=== PATIENT | male | born 1950 | race Hispanic/Latino ===

== ENCOUNTER → 2018-10-25 | Outpatient (CLI) | payer OTHER ==
[~2018-10-25] MED LIST: CILO100T PO; GLIM4TAB3 PO; METF-446 PO; MIRA25TA PO; TAMS0.4C32 PO
== END | disposition home or self-care (01) ==
LOC: OIH 16:18
PROVIDERS: ATTEND Family Medicine
DX: J44.9 Chronic obstructive pulmonary disease, unspecified (principal); I47.1 Supraventricular tachycardia
CPT/HCPCS: 71046

== ENCOUNTER 2020-01-26 13:43 | Inpatient (IN) | payer OTHER ==
[~2020-01-26] VITALS: Ht 170.2 cm; Wt 64.0 kg
[~2020-01-26 13:43] MED LIST changes: +ATOR10TA69 PO; -GLIM4TAB3 PO; +GLIM4TAB36 PO; +GLIP5TAB11 PO; -MIRA25TA PO; +SIMV-43 PO
[2020-01-26 14:05] LABS: BASOPHILS % (AUTO) 0.3 % (0.0-5.0); EOSINOPHILS % (AUTO) 0.4 % (0.0-8.0); HEMATOCRIT 36.4 % (42-54); LYMPHOCYTES % (AUTO) 2.7 % (21.0-51.0); MEAN CORPUSCULAR HEMOGLOBIN 27.9 pg (27.0-33.0); MEAN CORPUSCULAR HGB CONC 32.4 g/dL (32.0-36.0); MEAN CORPUSCULAR VOLUME 86.1 fL (79-99); MONOCYTES % (AUTO) 8.1 % (3.0-13.0); PLATELET COUNT (AUTO) 188 K/uL (130-400); RED BLOOD CELL COUNT(AUTO) 4.23 MIL/uL (4.50-6.20); RED CELL DISTRIBUTION WIDTH 14.6 % (11.0-15.5); WHITE BLOOD COUNT (AUTO) 24.1 K/uL (4.8-10.8)
[2020-01-26 14:22] LABS: INR 1.15 (0.85-1.15); PARTIAL THROMBOPLASTIN TIME 34.1 SEC (26.3-35.5); PROTHROMBIN TIME 12.4 SEC (9.6-11.6)
[2020-01-26] MEDS ORDERED: SODIUM CHLORIDE 0.9% 1000ML 1,000 ML IV ONE ×3 (14:22→19:53)
[2020-01-26 14:37] LABS: POTASSIUM 3.3 mmol/L (3.5-5.1)
[2020-01-26] MEDS ORDERED: LEVOFLOXACIN 500 MG/D5W 100 ML 100 ML ONE (14:42)
[2020-01-26] MEDS ORDERED: CEFTRIAXONE SODIUM 1 GM ONE (14:42)
[2020-01-26 14:50] LABS: ALBUMIN 2.9 g/dL (3.5-5.0); BILIRUBIN,TOTAL 0.8 mg/dL (0.2-1.0); TOTAL PROTEIN, SERUM 7.3 g/dL (6.0-8.3)
[2020-01-26 14:59] LABS: APPEARANCE,URINE Cloudy (CLEAR); BILIRUBIN,URINE Negative (NEGATIVE); COLOR,URINE Dark Yellow (YELLOW); GLUCOSE, URINE (UA) >=1000 mg/dL (NEGATIVE); KETONES,URINE 15 mg/dL (NEGATIVE); LEUKOCYTE ESTERASE ,URINE Trace (NEGATIVE); NITRATE,URINE Negative (NEGATIVE); OCCULT BLOOD,URINE Large (NEGATIVE); PROTEIN,URINE 300 mg/dL (NEGATIVE)
[2020-01-26 15:18] LABS: BACTERIA,URINE Moderate /HPF (None Seen); MUCUS,URINE Few LPF (None Seen); SQUAMOUS EPITHELIAL CELL,UR Few /HPF (0-2)
[2020-01-26] MEDS ORDERED: POTASSIUM BICARB/CIT AC 25 MEQ TABLET.EFF ONE (15:24)
[2020-01-26] MEDS ORDERED: METRONIDAZOLE 500MG/100ML BAG 100 ML ONE (15:25)
[2020-01-26] MEDS ORDERED: ACETAMINOPHEN 325 MG TAB ONE ×2 (16:22→21:36)
[2020-01-26] MEDS ORDERED: ACETAMINOPHEN 325 MG TAB PO PRN ×2 (17:15→18:15)
[2020-01-26] MEDS: SODIUM CHLORIDE 0.9% 1000ML 1,000 ML IV SCH (18:15)
[2020-01-26] MEDS ORDERED: LACTULOSE 20 GM/30 ML UDCUP PO PRN (18:15)
[2020-01-26] MEDS ORDERED: NITROGLYCERIN 0.4 MG SL TAB SL PRN (18:15)
[2020-01-26] MEDS: METRONIDAZOLE 500MG/100ML BAG 100 ML IV SCH (18:15)
[2020-01-26] MEDS ORDERED: ONDANSETRON HCL 4 MG/2 ML VIAL IV PRN (18:15)
[2020-01-26] MEDS ORDERED: CEFTRIAXONE SODIUM 1 GM IV SCH (18:15)
[2020-01-26] MEDS ORDERED: HYDRALAZINE HCL 20 MG/ML VIAL ONE (20:21)
[2020-01-26] MEDS: INSULIN HUMULIN R 100 UNIT/ML 3ML SQ SCH (21:00)
[2020-01-26 21:50] VITALS: BP 131/72
[2020-01-26] MEDS ORDERED: FOLI1 PO (22:47)
[2020-01-26] MEDS ORDERED: METF-446 PO (22:47)
[2020-01-26] MEDS ORDERED: FERR-82 PO (22:47)
[2020-01-26] MEDS ORDERED: AMOX1TAB16 PO (22:47)
[2020-01-26] MEDS ORDERED: GLIP5TAB11 PO (22:47)
[2020-01-26] MEDS ORDERED: OMEP40CA13 PO (22:47)
[2020-01-26] MEDS ORDERED: CILO100T PO (22:47)
[2020-01-26] MEDS ORDERED: NITR100C PO (22:47)
[2020-01-26] MEDS ORDERED: SIMV-43 PO (22:47)
[2020-01-26] MEDS ORDERED: TAMS-1 PO (22:47)
--- NOTE | 2020-01-26 23:22 | NUR ---
PATIENT RECEIVED TO ROOM 326 FROM Maura, REPORT FROM GALINDO RN. PT ARRIVED TO ROOM WIT FEVER OF 103.7, PER GALINDO SHE STATES SHE GAVE HIM TYLENOL BEFORE TRANSPORTING TO ROOM. ICE PACKS IMMEDIATELY PLACED ON PATIENT. STARTED 20 G PIV TO RIGHT FA. NS AT 100ML TO LEFT AC PIV. TELE MONITORING WITH ST 120s. PATIENT IS VERY IONE, ALERT ONLY TO SELF, , AND IS AWARE HE IS IN THE HOSPITAL EXCEPT HE SAID [facility] [place]. I REORIENTED TO PLACE, INSTRUCTED [employer] USE. ASSESSMENT COMPLETED. I CALLED HIS , HERMAN FERRERA AND OBTAINED ADMIT INFORMATION FROM HER. I INSTRUCTED ON NO VISITORS UNTIL FURTHER NOTICE. STATES SHE IS AWARE AND WILL CALL TOMORROW TO F/U ON HER . RECHECK OF TEMP IS 100.6 (ORAL). WILL CONT TO MONITOR CLOSELY.
[2020-01-26 23:32] VITALS: BP 131/72
[2020-01-27] VITALS (11 sets, daily range): BP systolic 97–157; BP diastolic 60–99
--- NOTE | 2020-01-27 01:27 | NUR ---
PATIENT NOTED TO BE SHIVERING, TEMP ASSESSED, FOUND TO BE 103.1. ICE PACKS CONT ON PATIENT, TYLENOL 650 MG PO ADMINISTERED. WILL CONT TO MONITOR CLOSELY.
[2020-01-27] MEDS: METRONIDAZOLE 500MG/100ML BAG 100 ML IV SCH ×2 (02:01→09:41)
--- NOTE | 2020-01-27 02:22 | NUR ---
TEMP AT 102.2 ORAL. PATIENT CONT WITH ICE PACKS TO BODY. NO ACUTE DISTRESS NOTED. WILL CONT TO MONITOR CLOSELY.
--- NOTE | 2020-01-27 03:10 | NUR ---
TEMP AT 99.9 ORAL. PATIENT WAS SLEEPING, NO ACUTE DISTRESS NOTED. WILL CONT TO MONITOR CLOSELY.
[2020-01-27] MEDS: SODIUM CHLORIDE 0.9% 1000ML 1,000 ML IV SCH ×3 (04:34→18:16)
[2020-01-27] MEDS ORDERED: VANCOMYCIN PROTOCOL PER PHARMACY IV SCH (04:45)
[2020-01-27] MEDS: ACETAMINOPHEN 325 MG TAB PO PRN ×2 (04:45→14:32)
[2020-01-27] MEDS ORDERED: IPRATROPIUM/ALBUTEROL SULFATE 3 ML SOLUTION IH PRN (04:45)
[2020-01-27] MEDS ORDERED: CEFEPIME HCL 2 GM VIAL IVP SCH (05:00)
[2020-01-27 05:15] LABS: BASOPHILS % (AUTO) 0.2 % (0.0-5.0); EOSINOPHILS % (AUTO) 0.9 % (0.0-8.0); HEMATOCRIT 32.9 % (42-54); LYMPHOCYTES % (AUTO) 4.2 % (21.0-51.0); MEAN CORPUSCULAR HGB CONC 31.6 g/dL (32.0-36.0); MEAN CORPUSCULAR VOLUME 85.5 fL (79-99); MONOCYTES % (AUTO) 5.5 % (3.0-13.0); NEUTROPHILS % (AUTO) 87.9 % (40.0-77.0); PLATELET COUNT (AUTO) 156 K/uL (130-400); RED BLOOD CELL COUNT(AUTO) 3.85 MIL/uL (4.50-6.20); RED CELL DISTRIBUTION WIDTH 14.6 % (11.0-15.5); WHITE BLOOD COUNT (AUTO) 18.8 K/uL (4.8-10.8)
[2020-01-27 05:23] LABS: HEMOGLOBIN A1C 7.9 % (4.0-6.0)
--- NOTE | 2020-01-27 05:25 | NUR ---
RECEIVED CALL FROM TELEMETRY AT 0400, PATIENT WITH HEART RATE 140-150s. PT WAS FOUND SEVERELY SHIVERING, TEMP WAS AT 103.2. I PAGED RIMA RUIZ. HE CAME TO ASSESS PATIENT. I INFORMED HIM THAT PATIENT WAS SENT UP FROM ER WITH TEMP OF 103. I INFORMED HIM THAT I HAVE KEPT HIM ON ICE PACKS SINCE HE WAS BROUGHT FROM [facility]. T-MAX HAS BEEN 103 TO 99.9 AND IMMEDIATELY GOES UP TO 103 AGAIN. STAT ORDERS RECEIVED AND CARRIED OUT. PATIENT TRANSFERRED TO ROOM 222 FOR DX SEPSIS AND FEVER. REPORT GIVEN TO ELMA MARTINEZ.
[2020-01-27 05:35] LABS: ALBUMIN 2.5 g/dL (3.5-5.0); BILIRUBIN,TOTAL 0.7 mg/dL (0.2-1.0); CREATININE 1.5 mg/dL (0.5-1.5); TOTAL PROTEIN, SERUM 6.7 g/dL (6.0-8.3)
--- NOTE | 2020-01-27 05:35 | NUR ---
Patient transferred from 3rd floor. Upon arrival; Fever 103.5, tachycardia 130s, BP 149/99. Patient on 2L nc, 02 sats at 97%. No signs of respiratory distress. Drowsy and RAMPART. Tolerating IV antibiotics.
[2020-01-27] MEDS ORDERED: POTASSIUM CHLORIDE 20 MEQ/100 ML BAG IV SCH ×2 (05:45→09:00)
[2020-01-27 05:53] LABS: CRP QUANTITATIVE 465.8 mg/L (0.00-9.0)
[2020-01-27] MEDS ORDERED: DOXYCYCLINE 100MG+NS 250ML 250 ML IV SCH ×2 (06:00→08:00)
--- NOTE | 2020-01-27 06:00 | NUR ---
RIMA Campo informed of lactic 2.5, K+ of 3.0, fever of 103.5. Orders given for potassium replacement of 40 meq.
[2020-01-27] MEDS: INSULIN HUMULIN R 100 UNIT/ML 3ML SQ SCH ×4 (06:35→20:36)
[2020-01-27] MEDS ORDERED: VANCOMYCIN 1GM+NS 250ML 250 ML IV SCH (07:00)
[2020-01-27] MEDS: FAMOTIDINE/PF 20 MG/2 ML VIAL IV SCH (08:08)
[2020-01-27] MEDS ORDERED: SODIUM CHLORIDE 0.9% 1000ML 1,000 ML IV SCH (08:43)
[2020-01-27] MEDS ORDERED: LEVOFLOXACIN 250 MG/D5W 50ML 50 ML IV SCH (09:00)
[2020-01-27] MEDS ORDERED: ENOXAPARIN SODIUM 30 MG/0.3 ML SQ SCH (09:00)
[2020-01-27] MEDS ORDERED: LINEZOLID 600 MG/ISO-OSM 300 ML IV SCH (10:00)
[2020-01-27] MEDS ORDERED: PHARMACY COMMUNICATION MISC SCH (11:00)
[2020-01-27] MEDS ORDERED: COMPOUND PO MISCELLANEOUS 1 EACH MISC MISC PRN (11:15)
[2020-01-27] MEDS: VANCOMYCIN 250MG/5ML ORAL SOLUTION 40ML PO SCH ×4 (13:57→18:16)
[2020-01-27] MEDS: OSELTAMIVIR PHOSPHATE 75 MG CAP PO SCH (14:31)
--- NOTE | 2020-01-27 15:45 | NUR ---
Patient with continued fever. Cooling blanket placed on patient.
--- NOTE | 2020-01-27 17:15 | NUR ---
Dr. Byrd notified of patient with tachypnea and SVT 171. Lopressor [address] Moya with call. Ordered Meropenem 1 gm iv Q8 hours.
[2020-01-27] MEDS ORDERED: MEROPENEM 1 GM VIAL ONE (17:22)
[2020-01-27] MEDS ORDERED: METOPROLOL TARTRATE 1 MG/ML 5ML VIAL IV ONE (17:22)
[2020-01-27] MEDS ORDERED: METOPROLOL TARTRATE 1 MG/ML 5ML VIAL IV PRN (17:30)
[2020-01-27] MEDS: MEROPENEM 1 GM VIAL IVP SCH (17:36)
--- NOTE | 2020-01-27 17:45 | NUR ---
Dr. Byrd notified of patient with continued tachypnea and decreased oxygen saturation. Ordered abg and cxr. Transfer to ICU.
[2020-01-27 17:56] LABS: ABG BASE EXCESS -5.8 mmol/L (-2.0-3.0); ABG HCO3 17.5 mmol/L (21.0-28.0); ABG OXYGEN SATURATION 84.7 % (95.0-99.0); ABG PCO2 29 mmHg (35-48)
--- NOTE | 2020-01-27 18:03 | NUR ---
Dr. Bliss notified of ICU orders and abg results. No new orders received. Patient with oxygen saturation of 100 % with non rebreather.
[2020-01-28] VITALS (62 sets, daily range): BP systolic 94–151; BP diastolic 38–107
[2020-01-28] MEDS: VANCOMYCIN 250MG/5ML ORAL SOLUTION 40ML PO SCH ×8 (00:27→19:37)
[2020-01-28] MEDS: MEROPENEM 1 GM VIAL IVP SCH ×3 (01:09→16:46)
[2020-01-28] MEDS: ACETAMINOPHEN 325 MG TAB PO PRN ×3 (01:47→16:14)
--- NOTE | 2020-01-28 02:40 | NUR ---
Patient with continues to have high fevers (Rectal) . Continuous Cooling blanket placed on patient underneath sheets. Hospitalist contacted for orders.. Patient continues to be monitor
[2020-01-28] MEDS ORDERED: FUROSEMIDE 10 MG/ML 4ML VIAL ONE (02:59)
[2020-01-28] MEDS ORDERED: FUROSEMIDE 10 MG/ML 4ML VIAL IV SCH (03:00)
[2020-01-28 03:04] LABS: ABG BASE EXCESS -12.3 mmol/L (-2.0-3.0); ABG OXYGEN SATURATION 94.9 % (95.0-99.0); ABG PCO2 29 mmHg (35-48)
--- NOTE | 2020-01-28 03:34 | NUR ---
Contacted DR Bliss regarding ABG's changes and patient upgraded to ICU. Only order requested is to have Lactic Acid draw at 7am.
--- NOTE | 2020-01-28 03:45 | NUR ---
Report given to [facility] ICU nurse. Patient transfer via wheel chair and monitor to room 210. Patient stable, good, no distress during transfer.
[2020-01-28 04:13] LABS: BASOPHILS % (AUTO) 0.3 % (0.0-5.0); EOSINOPHILS % (AUTO) 0.6 % (0.0-8.0); LYMPHOCYTES % (AUTO) 3.2 % (21.0-51.0); MEAN CORPUSCULAR HEMOGLOBIN 27.9 pg (27.0-33.0); MEAN CORPUSCULAR HGB CONC 31.4 g/dL (32.0-36.0); MEAN CORPUSCULAR VOLUME 88.9 fL (79-99); MONOCYTES % (AUTO) 5.5 % (3.0-13.0); NEUTROPHILS % (AUTO) 89.4 % (40.0-77.0); PLATELET COUNT (AUTO) 185 K/uL (130-400); RED BLOOD CELL COUNT(AUTO) 4.05 MIL/uL (4.50-6.20); RED CELL DISTRIBUTION WIDTH 14.8 % (11.0-15.5); WHITE BLOOD COUNT (AUTO) 18.6 K/uL (4.8-10.8)
[2020-01-28 04:36] LABS: ALBUMIN 2.3 g/dL (3.5-5.0); BILIRUBIN,TOTAL 0.6 mg/dL (0.2-1.0); CREATININE 1.8 mg/dL (0.5-1.5); MAGNESIUM 1.9 mg/dL (1.80-2.40); PHOSPHORUS 3.2 mg/dL (2.5-4.9); POTASSIUM 4.3 mmol/L (3.5-5.1); TOTAL PROTEIN, SERUM 6.8 g/dL (6.0-8.3)
--- NOTE | 2020-01-28 04:36 | NUR ---
[facility]0 [facility]. On Bipap 08/13, BR-16, FI02-50%. On cooling blanket w/rectal probe. Temp 101.8 rectal. Labs reported to Dr Bliss. RIMA VOLUNTEER PATIENT REPRESENTATIVE here with patient. Ordered f/c. 0345 16 fr tyler inserted using strict,,sterile technique. 0400 labs drawn. 0415 lactic acid level 2.7.
[2020-01-28] MEDS: IPRATROPIUM/ALBUTEROL SULFATE 3 ML SOLUTION IH SCH ×4 (06:29→23:39)
[2020-01-28] MEDS ORDERED: VANCOMYCIN 1GM+NS 250ML 250 ML IV SCH (07:00)
[2020-01-28] MEDS: INSULIN HUMULIN R 100 UNIT/ML 3ML SQ SCH ×4 (07:57→20:55)
[2020-01-28] MEDS: FAMOTIDINE/PF 20 MG/2 ML VIAL IV SCH (08:02)
[2020-01-28] MEDS: DOXYCYCLINE 100MG+NS 250ML 250 ML IV SCH ×2 (12:22→21:12)
[2020-01-28 13:49] LABS: LACTATE DEHYDROGENASE 534 U/L (81-234)
[2020-01-28 13:54] LABS: CREATINE KINASE, TOTAL 551 U/L (21-232)
[2020-01-28] MEDS: OSELTAMIVIR PHOSPHATE 75 MG CAP PO SCH (14:07)
--- NOTE | 2020-01-28 16:30 | NUR ---
DR SHAW AT BEDSIDE TO ASSESS PATIENT
--- NOTE | 2020-01-28 16:36 | NUR ---
INITIAL: Pt currently in isolation. Call placed to spouse Kassandra. Per Kassandra, prior to admission pt was walking short distances independently, however has had several falls recently to the point she had to call EMS. Pt has no DME or services prior to admission. Per pt's spouse, pt had been to [facility] back on 09/2019 for rehab and would consider a short stay if he is too weak to go home. Discussed w spouse that CM would continue to follow pt's progress and assist w dc needs. Informed her that if Md orders SNF referral would have to poss wait on ins auth. Mrs Rojas verbalizes understanding. Addendum: 01/28/20 at 1640 by OZZY KUMARI Amended: Links added.
[2020-01-28] MEDS ORDERED: FUROSEMIDE 10 MG/ML 2ML VIAL IV SCH ×2 (18:00→22:00)
[2020-01-28] MEDS: MIDODRINE HCL 5 MG TABLET PO SCH (21:11)
[2020-01-29] VITALS (34 sets, daily range): BP systolic 67–131; BP diastolic 43–87
[2020-01-29] MEDS: VANCOMYCIN 250MG/5ML ORAL SOLUTION 40ML PO SCH ×10 (01:22→23:32)
[2020-01-29] MEDS: MEROPENEM 1 GM VIAL IVP SCH ×4 (01:36→23:30)
[2020-01-29] MEDS: ACETAMINOPHEN 325 MG TAB PO PRN (03:25)
[2020-01-29 04:33] LABS: BASOPHILS % (AUTO) 0.6 % (0.0-5.0); EOSINOPHILS % (AUTO) 0.3 % (0.0-8.0); HEMATOCRIT 37.4 % (42-54); LYMPHOCYTES % (AUTO) 3.3 % (21.0-51.0); MEAN CORPUSCULAR HEMOGLOBIN 27.1 pg (27.0-33.0); MEAN CORPUSCULAR HGB CONC 31.8 g/dL (32.0-36.0); MEAN CORPUSCULAR VOLUME 85.2 fL (79-99); MONOCYTES % (AUTO) 8.1 % (3.0-13.0); NEUTROPHILS % (AUTO) 86.1 % (40.0-77.0); PLATELET COUNT (AUTO) 211 K/uL (130-400); RED BLOOD CELL COUNT(AUTO) 4.39 MIL/uL (4.50-6.20); RED CELL DISTRIBUTION WIDTH 14.8 % (11.0-15.5); WHITE BLOOD COUNT (AUTO) 21.5 K/uL (4.8-10.8)
[2020-01-29 05:02] LABS: ALBUMIN 2.2 g/dL (3.5-5.0); BILIRUBIN,TOTAL 0.5 mg/dL (0.2-1.0); CREATININE 1.5 mg/dL (0.5-1.5); MAGNESIUM 1.4 mg/dL (1.80-2.40); PHOSPHORUS 2.4 mg/dL (2.5-4.9); POTASSIUM 3.1 mmol/L (3.5-5.1); TOTAL PROTEIN, SERUM 6.8 g/dL (6.0-8.3)
[2020-01-29 05:30] LABS: B-TYPE NATRIURETIC PEPTIDE 2630 pg/mL (0-100)
[2020-01-29] MEDS ORDERED: LIDOCAINE HCL-MPF 1% 2ML VIAL IV PRN (06:30)
[2020-01-29] MEDS ORDERED: PHARMACY COMMUNICATION MISC SCH (06:30)
[2020-01-29] MEDS: IPRATROPIUM/ALBUTEROL SULFATE 3 ML SOLUTION IH SCH (06:31)
[2020-01-29] MEDS: INSULIN HUMULIN R 100 UNIT/ML 3ML SQ SCH ×5 (07:30→21:07)
[2020-01-29] MEDS: MAGNESIUM 2GM PREMIX 50ML 50 ML IV PRN (08:18)
[2020-01-29] MEDS: FAMOTIDINE/PF 20 MG/2 ML VIAL IV SCH (08:19)
[2020-01-29] MEDS: MIDODRINE HCL 5 MG TABLET PO SCH ×2 (08:19→21:05)
[2020-01-29] MEDS: POTASSIUM CHLORIDE 20 MEQ ERTAB PO PRN ×3 (08:19→21:06)
--- NOTE | 2020-01-29 10:44 | NUR ---
TRANSFER FOR POSSIBLE COVID ORDER FOR PATIENT TO TRANSFER TO 215 FOR SUSPECTED COVID.
--- NOTE | 2020-01-29 11:00 | NUR ---
DR. SHAW AT BEDSIDE DR. SHAW FOR PATIENT ROUNDING. HE WAS UPDATED ABOUT PATIENTS TEMPS AND POTASSIUM LEVEL. NO ORDERS GIVEN.
--- NOTE | 2020-01-29 11:25 | NUR ---
REPORT GIVEN TO MELODY Ramon RN AT 1125. PATIENT TAKEN TO ROOM 215 ON NASAL CANNULA. PATIENT STABLE AND ALERT.
--- NOTE | 2020-01-29 12:25 | NUR ---
Assumed care of patient. MICHELLE Costello gave report. No changes found to documented noon assessment. Will continue to monitor.
[2020-01-29] MEDS: OSELTAMIVIR PHOSPHATE 75 MG CAP PO SCH (13:20)
[2020-01-29] MEDS: FUROSEMIDE 10 MG/ML 4ML VIAL IV SCH ×2 (13:23→23:31)
[2020-01-29] MEDS: DOXYCYCLINE 100MG+NS 250ML 250 ML IV SCH ×2 (13:25→23:31)
[2020-01-29 18:56] LABS: MAGNESIUM 1.4 mg/dL (1.80-2.40); POTASSIUM 3.1 mmol/L (3.5-5.1)
[2020-01-30] VITALS (26 sets, daily range): BP systolic 97–148; BP diastolic 49–92
[2020-01-30 04:39] LABS: HEMATOCRIT 38.6 % (42-54); MEAN CORPUSCULAR HEMOGLOBIN 27.5 pg (27.0-33.0); MEAN CORPUSCULAR HGB CONC 33.2 g/dL (32.0-36.0); NUCLEATED RED BLOOD CELLS 0.2 % (0.0-0.19); PLATELET COUNT (AUTO) 228 K/uL (130-400); RED BLOOD CELL COUNT(AUTO) 4.65 MIL/uL (4.50-6.20); RED CELL DISTRIBUTION WIDTH 14.5 % (11.0-15.5); WHITE BLOOD COUNT (AUTO) 19.3 K/uL (4.8-10.8)
[2020-01-30 05:27] LABS: ALBUMIN 2.2 g/dL (3.5-5.0); BILIRUBIN,TOTAL 0.5 mg/dL (0.2-1.0); CREATININE 1.5 mg/dL (0.5-1.5); MAGNESIUM 1.4 mg/dL (1.80-2.40); PHOSPHORUS 0.9 mg/dL (2.5-4.9)
[2020-01-30] MEDS: VANCOMYCIN 250MG/5ML ORAL SOLUTION 40ML PO SCH ×8 (06:11→22:40)
[2020-01-30] MEDS: INSULIN HUMULIN R 100 UNIT/ML 3ML SQ SCH ×4 (06:13→21:19)
[2020-01-30] MEDS: POTASSIUM CHLORIDE 20 MEQ ERTAB PO SCH (09:15)
--- NOTE | 2020-01-30 12:00 | NUR ---
Patient has been non compliant with nursing instruction and has been refusing medication by putting them in his mouth and then spitting them out. patient repeatedly attempts to get out of bed. bed alarm is on and patient and patient is being monitored very closely.
[2020-01-30] MEDS: FAMOTIDINE/PF 20 MG/2 ML VIAL IV SCH (12:27)
[2020-01-30] MEDS: MIDODRINE HCL 5 MG TABLET PO SCH ×2 (12:30→20:48)
[2020-01-30] MEDS: NEUTRA-PHOS PACKET 1 EACH PO SCH ×3 (12:31→20:48)
[2020-01-30] MEDS: OSELTAMIVIR PHOSPHATE 75 MG CAP PO SCH (12:32)
[2020-01-30] MEDS: FUROSEMIDE 10 MG/ML 4ML VIAL IV SCH (12:33)
[2020-01-30] MEDS: DOXYCYCLINE 100MG+NS 250ML 250 ML IV SCH ×2 (12:33→21:19)
[2020-01-30] MEDS: POTASSIUM CHLORIDE 20MEQ/100ML 100 ML IV PRN ×2 (12:40→15:38)
[2020-01-30] MEDS: MAGNESIUM 2GM PREMIX 50ML 50 ML IV PRN (12:41)
[2020-01-30] MEDS: MEROPENEM 1 GM VIAL IVP SCH ×3 (12:47→23:31)
--- NOTE | 2020-01-30 16:00 | NUR ---
Patient is refusing second IV insertion for IV electrolyte replacement. PO electrolyte replacement is given instead. Patient has been taught importance of IV electrolyte replacement, however he refuses by stating "Its pointless" and "we are just trying to bother him and poke him." will continue to closely monitor patient
[2020-01-30 16:01] LABS: CREATININE 1.4 mg/dL (0.5-1.5); MAGNESIUM 1.7 mg/dL (1.80-2.40); PHOSPHORUS 1.5 mg/dL (2.5-4.9)
[2020-01-30 16:06] LABS: POTASSIUM 2.9 mmol/L (3.5-5.1)
--- NOTE | 2020-01-30 18:00 | NUR ---
I spoke with patient's at this time to update her on her 's medical status. Patient's was pleased with status update. Patient stated that her is medically non compliant and this is normal behavior for him. Will continue to monitor patient
[2020-01-30] MEDS ORDERED: PHARMACY COMMUNICATION MISC SCH (22:45)
[2020-01-31] VITALS (23 sets, daily range): BP systolic 97–140; BP diastolic 45–81
[2020-01-31] MEDS: FUROSEMIDE 10 MG/ML 4ML VIAL IV SCH ×2 (00:01→12:33)
[2020-01-31] MEDS: ACETAMINOPHEN 325 MG TAB PO PRN (02:11)
[2020-01-31 04:57] LABS: BASOPHILS % (AUTO) 0.7 % (0.0-5.0); EOSINOPHILS % (AUTO) 0.5 % (0.0-8.0); HEMATOCRIT 35.7 % (42-54); LYMPHOCYTES % (AUTO) 8.7 % (21.0-51.0); MEAN CORPUSCULAR HGB CONC 31.7 g/dL (32.0-36.0); MEAN CORPUSCULAR VOLUME 85.2 fL (79-99); MONOCYTES % (AUTO) 8.6 % (3.0-13.0); NUCLEATED RED BLOOD CELLS 0.3 % (0.0-0.19); PLATELET COUNT (AUTO) 252 K/uL (130-400); RED BLOOD CELL COUNT(AUTO) 4.19 MIL/uL (4.50-6.20); RED CELL DISTRIBUTION WIDTH 14.6 % (11.0-15.5); WHITE BLOOD COUNT (AUTO) 16.6 K/uL (4.8-10.8)
[2020-01-31 05:13] LABS: ALBUMIN 2.3 g/dL (3.5-5.0); BILIRUBIN,TOTAL 0.5 mg/dL (0.2-1.0); CREATININE 1.2 mg/dL (0.5-1.5); MAGNESIUM 1.2 mg/dL (1.80-2.40); PHOSPHORUS 1.6 mg/dL (2.5-4.9); POTASSIUM 3.2 mmol/L (3.5-5.1); TOTAL PROTEIN, SERUM 6.8 g/dL (6.0-8.3)
[2020-01-31 05:23] LABS: B-TYPE NATRIURETIC PEPTIDE 633 pg/mL (0-100)
[2020-01-31] MEDS: INSULIN HUMULIN R 100 UNIT/ML 3ML SQ SCH ×4 (05:37→20:56)
[2020-01-31] MEDS: POTASSIUM CHLORIDE 10% ELIXIR 20 MEQ/15 ML UDCUP PO PRN ×2 (05:53→05:54)
[2020-01-31] MEDS: MAGNESIUM 2GM PREMIX 50ML 50 ML IV PRN (05:53)
[2020-01-31] MEDS ORDERED: PHARMACY COMMUNICATION MISC SCH (06:45)
[2020-01-31] MEDS ORDERED: MAGNESIUM OXIDE 400 MG TABLET PO SCH (09:00)
[2020-01-31] MEDS: POTASSIUM CHLORIDE 20 MEQ ERTAB PO SCH (09:15)
[2020-01-31] MEDS: MEROPENEM 1 GM VIAL IVP SCH ×2 (09:59→19:10)
[2020-01-31] MEDS: VANCOMYCIN 250MG/5ML ORAL SOLUTION 40ML PO SCH ×6 (09:59→19:10)
[2020-01-31] MEDS: FAMOTIDINE/PF 20 MG/2 ML VIAL IV SCH (09:59)
[2020-01-31] MEDS: NEUTRA-PHOS PACKET 1 EACH PO SCH ×4 (09:59→20:40)
[2020-01-31] MEDS: DOXYCYCLINE 100MG+NS 250ML 250 ML IV SCH (10:00)
[2020-01-31] MEDS: MIDODRINE HCL 5 MG TABLET PO SCH (10:00)
[2020-01-31] MEDS: OSELTAMIVIR PHOSPHATE 75 MG CAP PO SCH (12:33)
--- NOTE | 2020-01-31 12:34 | NUR ---
RD Screen - LOS x 5 Pt admitted with Sepsis, Diarrhea, GBW. Pt pending Transesophageal ECho as per EMR, at time of screen. Pt tolerating 60gm CCD as per EMR. No report of GI distress, Good PO intake (100%). Recommend to continue current diet order. RD to continue to monitor BG, P, Mg nutrition labs. Please notify RD as additional nutrition concerns arise. Thank you. Addendum: 01/31/20 at [address]37 [address]S [address] RD Amended: Links added.
[2020-01-31 20:04] LABS: MAGNESIUM 1.8 mg/dL (1.80-2.40); PHOSPHORUS 2.4 mg/dL (2.5-4.9); POTASSIUM 3.4 mmol/L (3.5-5.1)
[2020-01-31] MEDS: POTASSIUM BICARB/CIT AC 25 MEQ TABLET.EFF PO SCH (20:41)
[2020-01-31] MEDS: SPIRONOLACTONE 25 MG TAB PO SCH (20:42)
[2020-01-31] MEDS: MAGNESIUM CHLORIDE 70 MG TABLET.SA PO SCH (20:43)
[2020-01-31] MEDS: INSULIN GLARGINE 100 UNITS/ML 10 ML VIAL SQ SCH (20:56)
[2020-02-01] VITALS (9 sets, daily range): BP systolic 106–133; BP diastolic 59–76
[2020-02-01] MEDS: DOXYCYCLINE 100MG+NS 250ML 250 ML IV SCH ×3 (00:11→22:41)
[2020-02-01] MEDS: MEROPENEM 1 GM VIAL IVP SCH ×3 (00:11→17:13)
[2020-02-01] MEDS: VANCOMYCIN 250MG/5ML ORAL SOLUTION 40ML PO SCH ×8 (00:11→18:00)
[2020-02-01 06:03] LABS: HEMATOCRIT 40.1 % (42-54); MEAN CORPUSCULAR HEMOGLOBIN 27.7 pg (27.0-33.0); MEAN CORPUSCULAR HGB CONC 31.7 g/dL (32.0-36.0); MEAN CORPUSCULAR VOLUME 87.4 fL (79-99); NUCLEATED RED BLOOD CELLS 0.5 % (0.0-0.19); PLATELET COUNT (AUTO) 266 K/uL (130-400); RED BLOOD CELL COUNT(AUTO) 4.59 MIL/uL (4.50-6.20); RED CELL DISTRIBUTION WIDTH 14.6 % (11.0-15.5); WHITE BLOOD COUNT (AUTO) 16.7 K/uL (4.8-10.8)
[2020-02-01 06:22] LABS: ALBUMIN 2.2 g/dL (3.5-5.0); BILIRUBIN,TOTAL 0.4 mg/dL (0.2-1.0); CREATININE 1.2 mg/dL (0.5-1.5); POTASSIUM 3.8 mmol/L (3.5-5.1); TOTAL PROTEIN, SERUM 7.1 g/dL (6.0-8.3)
[2020-02-01] MEDS: FUROSEMIDE 40 MG TABLET PO SCH ×3 (06:33→12:00)
[2020-02-01] MEDS: INSULIN HUMULIN R 100 UNIT/ML 3ML SQ SCH ×4 (06:46→21:00)
[2020-02-01] MEDS: POTASSIUM BICARB/CIT AC 25 MEQ TABLET.EFF PO SCH ×2 (09:00→22:42)
[2020-02-01] MEDS: POTASSIUM CHLORIDE 20 MEQ ERTAB PO SCH (09:15)
[2020-02-01] MEDS: NEUTRA-PHOS PACKET 1 EACH PO SCH (10:14)
[2020-02-01] MEDS: ENOXAPARIN SODIUM 40 MG/0.4 ML SYRINGE SQ SCH (10:14)
[2020-02-01] MEDS: SPIRONOLACTONE 25 MG TAB PO SCH ×2 (10:15→22:41)
[2020-02-01] MEDS: POTASSIUM CHLORIDE 20 MEQ ERTAB PO PRN (10:16)
[2020-02-01] MEDS: MAGNESIUM CHLORIDE 70 MG TABLET.SA PO SCH ×2 (10:26→22:42)
[2020-02-01] MEDS ORDERED: ZINC OXIDE OINT 60GM TUBE TP PRN (13:30)
--- NOTE | 2020-02-01 13:49 | NUR ---
[facility] CONSULT PATIENT ASSESSED REQUESTED: PATIENT PRESENTS WITH EXCORIATION/REDNESS TO COCCYX/PERINEUM; [facility] RECOMMENDATIONS SUBMITTED. Addendum: 02/01/20 at 1351 by IVIS EVANS LVN LVN W Amended: Links added.
[2020-02-01] MEDS: GLIPIZIDE 5 MG TABLET PO SCH (16:30)
[2020-02-01] MEDS: SIMVASTATIN 20 MG TABLET PO SCH (22:41)
[2020-02-01] MEDS: FLUCONAZOLE 100 MG TAB PO SCH (22:41)
[2020-02-01] MEDS: INSULIN GLARGINE 100 UNITS/ML 10 ML VIAL SQ SCH (23:04)
[2020-02-01] MEDS: LOPERAMIDE HCL 2 MG CAP PO PRN (23:40)
[2020-02-02] MEDS: LOPERAMIDE HCL 2 MG CAP PO PRN ×4 (00:26→22:05)
[2020-02-02] MEDS: MEROPENEM 1 GM VIAL IVP SCH ×3 (00:27→18:17)
[2020-02-02] MEDS: VANCOMYCIN 250MG/5ML ORAL SOLUTION 40ML PO SCH ×8 (00:58→18:15)
[2020-02-02 03:35] VITALS: BP 121/60
[2020-02-02 04:34] LABS: BASOPHILS % (AUTO) 0.2 % (0.0-5.0); EOSINOPHILS % (AUTO) 0.8 % (0.0-8.0); HEMATOCRIT 40.1 % (42-54); LYMPHOCYTES % (AUTO) 13.8 % (21.0-51.0); MEAN CORPUSCULAR HEMOGLOBIN 27.5 pg (27.0-33.0); MEAN CORPUSCULAR HGB CONC 31.7 g/dL (32.0-36.0); MONOCYTES % (AUTO) 6.1 % (3.0-13.0); NEUTROPHILS % (AUTO) 67.3 % (40.0-77.0); NUCLEATED RED BLOOD CELLS 0.4 % (0.0-0.19); PLATELET COUNT (AUTO) 270 K/uL (130-400); RED BLOOD CELL COUNT(AUTO) 4.61 MIL/uL (4.50-6.20); RED CELL DISTRIBUTION WIDTH 14.5 % (11.0-15.5); WHITE BLOOD COUNT (AUTO) 17.9 K/uL (4.8-10.8)
[2020-02-02 04:45] LABS: B-TYPE NATRIURETIC PEPTIDE 309 pg/mL (0-100)
[2020-02-02 04:49] LABS: CREATININE 1.2 mg/dL (0.5-1.5); MAGNESIUM 1.6 mg/dL (1.80-2.40); PHOSPHORUS 2.9 mg/dL (2.5-4.9); POTASSIUM 5.2 mmol/L (3.5-5.1)
[2020-02-02] MEDS: GLIPIZIDE 5 MG TABLET PO SCH ×2 (06:33→18:14)
[2020-02-02] MEDS: INSULIN HUMULIN R 100 UNIT/ML 3ML SQ SCH ×4 (06:35→22:07)
[2020-02-02 08:06] VITALS: BP 115/56
[2020-02-02] MEDS: POTASSIUM BICARB/CIT AC 25 MEQ TABLET.EFF PO SCH ×2 (09:00→21:00)
[2020-02-02] MEDS: POTASSIUM CHLORIDE 20 MEQ ERTAB PO SCH (09:15)
[2020-02-02] MEDS: SPIRONOLACTONE 25 MG TAB PO SCH ×2 (11:10→22:05)
[2020-02-02] MEDS: FERROUS SULFATE 325 MG TABLET.DR PO SCH (11:11)
[2020-02-02] MEDS: TAMSULOSIN HCL 0.4 MG CAP.ER.24H PO SCH (11:11)
[2020-02-02] MEDS: FOLIC ACID 1 MG TABLET PO SCH (11:11)
[2020-02-02] MEDS: MAGNESIUM CHLORIDE 70 MG TABLET.SA PO SCH ×2 (11:14→22:05)
[2020-02-02] MEDS: ENOXAPARIN SODIUM 40 MG/0.4 ML SYRINGE SQ SCH (11:14)
[2020-02-02] MEDS: FUROSEMIDE 40 MG TABLET PO SCH (11:22)
[2020-02-02] MEDS: DOXYCYCLINE 100MG+NS 250ML 250 ML IV SCH ×2 (11:23→22:04)
[2020-02-02 11:42] VITALS: BP 110/60
[2020-02-02 17:01] VITALS: BP 155/91
[2020-02-02 20:26] VITALS: BP 120/63
[2020-02-02] MEDS: MAGNESIUM 2GM PREMIX 50ML 50 ML IV PRN (22:04)
[2020-02-02] MEDS: FLUCONAZOLE 100 MG TAB PO SCH (22:05)
[2020-02-02] MEDS: SIMVASTATIN 20 MG TABLET PO SCH (22:05)
[2020-02-02] MEDS: INSULIN GLARGINE 100 UNITS/ML 10 ML VIAL SQ SCH (22:07)
[2020-02-03] VITALS (7 sets, daily range): BP systolic 100–149; BP diastolic 38–76
[2020-02-03] MEDS: MEROPENEM 1 GM VIAL IVP SCH ×2 (00:57→10:08)
[2020-02-03] MEDS: VANCOMYCIN 250MG/5ML ORAL SOLUTION 40ML PO SCH ×10 (00:59→22:37)
[2020-02-03 06:17] LABS: BASOPHILS % (AUTO) 0.3 % (0.0-5.0); HEMATOCRIT 39.8 % (42-54); LYMPHOCYTES % (AUTO) 17.2 % (21.0-51.0); MEAN CORPUSCULAR HEMOGLOBIN 27.5 pg (27.0-33.0); MEAN CORPUSCULAR HGB CONC 31.7 g/dL (32.0-36.0); MEAN CORPUSCULAR VOLUME 86.9 fL (79-99); MONOCYTES % (AUTO) 7.8 % (3.0-13.0); NEUTROPHILS % (AUTO) 62.9 % (40.0-77.0); NUCLEATED RED BLOOD CELLS 0.5 % (0.0-0.19); PLATELET COUNT (AUTO) 296 K/uL (130-400); RED BLOOD CELL COUNT(AUTO) 4.58 MIL/uL (4.50-6.20); RED CELL DISTRIBUTION WIDTH 14.3 % (11.0-15.5); WHITE BLOOD COUNT (AUTO) 15.3 K/uL (4.8-10.8)
[2020-02-03 06:37] LABS: B-TYPE NATRIURETIC PEPTIDE 227 pg/mL (0-100)
[2020-02-03] MEDS: GLIPIZIDE 5 MG TABLET PO SCH (06:46)
[2020-02-03 06:51] LABS: CREATININE 1.3 mg/dL (0.5-1.5); CRP QUANTITATIVE 50.6 mg/L (0.00-9.0); MAGNESIUM 2.4 mg/dL (1.80-2.40); POTASSIUM 4.9 mmol/L (3.5-5.1)
[2020-02-03] MEDS: INSULIN HUMULIN R 100 UNIT/ML 3ML SQ SCH ×4 (06:58→22:45)
[2020-02-03 08:46] LABS: ERYTHROCYTE SEDIMENTATION RATE 63 MM/HR (0-20)
[2020-02-03] MEDS: POTASSIUM CHLORIDE 20 MEQ ERTAB PO SCH (09:15)
[2020-02-03] MEDS: MAGNESIUM CHLORIDE 70 MG TABLET.SA PO SCH ×2 (10:06→21:00)
[2020-02-03] MEDS: TAMSULOSIN HCL 0.4 MG CAP.ER.24H PO SCH (10:06)
[2020-02-03] MEDS: SPIRONOLACTONE 25 MG TAB PO SCH (10:07)
[2020-02-03] MEDS: FOLIC ACID 1 MG TABLET PO SCH (10:07)
[2020-02-03] MEDS: ENOXAPARIN SODIUM 40 MG/0.4 ML SYRINGE SQ SCH (10:07)
[2020-02-03] MEDS: FUROSEMIDE 40 MG TABLET PO SCH (10:07)
[2020-02-03] MEDS: FERROUS SULFATE 325 MG TABLET.DR PO SCH (10:07)
[2020-02-03] MEDS: POTASSIUM BICARB/CIT AC 25 MEQ TABLET.EFF PO SCH (10:08)
[2020-02-03] MEDS: DOXYCYCLINE 100MG+NS 250ML 250 ML IV SCH ×2 (12:06→22:41)
[2020-02-03] MEDS: INSULIN GLARGINE 100 UNITS/ML 10 ML VIAL SQ SCH (22:44)
[2020-02-04 03:40] VITALS: BP 95/53
[2020-02-04] MEDS: VANCOMYCIN 250MG/5ML ORAL SOLUTION 40ML PO SCH ×6 (06:03→17:03)
[2020-02-04] MEDS: INSULIN HUMULIN R 100 UNIT/ML 3ML SQ SCH ×4 (06:40→21:12)
[2020-02-04 06:43] LABS: BASOPHILS % (AUTO) 0.9 % (0.0-5.0); EOSINOPHILS % (AUTO) 0.7 % (0.0-8.0); HEMATOCRIT 40.9 % (42-54); LYMPHOCYTES % (AUTO) 20.7 % (21.0-51.0); MEAN CORPUSCULAR HEMOGLOBIN 27.2 pg (27.0-33.0); MEAN CORPUSCULAR HGB CONC 31.3 g/dL (32.0-36.0); MONOCYTES % (AUTO) 8.1 % (3.0-13.0); NUCLEATED RED BLOOD CELLS 0.2 % (0.0-0.19); PLATELET COUNT (AUTO) 362 K/uL (130-400); RED CELL DISTRIBUTION WIDTH 14.3 % (11.0-15.5); WHITE BLOOD COUNT (AUTO) 12.7 K/uL (4.8-10.8)
[2020-02-04 07:03] LABS: CREATININE 1.4 mg/dL (0.5-1.5); POTASSIUM 5.3 mmol/L (3.5-5.1)
[2020-02-04 08:00] VITALS: BP 127/77
[2020-02-04] MEDS: POTASSIUM CHLORIDE 20 MEQ ERTAB PO SCH (08:46)
[2020-02-04 11:00] VITALS: BP_SYST 107; BP_SYST 133; BP_DIAS 67; BP_DIAS 76
[2020-02-04] MEDS: DOXYCYCLINE 100MG+NS 250ML 250 ML IV SCH (12:20)
[2020-02-04 16:00] VITALS: BP 114/67
[2020-02-04 19:45] VITALS: BP 136/77
[2020-02-04] MEDS: INSULIN GLARGINE 100 UNITS/ML 10 ML VIAL SQ SCH (21:12)
[2020-02-05] VITALS (7 sets, daily range): BP systolic 108–130; BP diastolic 60–74
[2020-02-05] MEDS: VANCOMYCIN 250MG/5ML ORAL SOLUTION 40ML PO SCH ×12 (01:25→23:21)
[2020-02-05] MEDS: INSULIN HUMULIN R 100 UNIT/ML 3ML SQ SCH ×4 (05:35→21:00)
[2020-02-05] MEDS: POTASSIUM CHLORIDE 20 MEQ ERTAB PO SCH (09:15)
--- NOTE | 2020-02-05 13:56 | NUR ---
CM Note: POC CM spoke to pt's spouse Julissa [phone]. Spouse is requested walker and provider. Informed pt will have Francesca w/DAD's aware regarding request for provider. Informed spouse will try to get walker but cannot guarantee. If unable to, spouse to follow up with pcp. Spouse verbalized understanding. Informed Byron RN for pt's spouse request for standard walker, script flagged in chart, pending to sign. Primary nurse aware will inform CM once script is signed. CM to cont to follow up.
--- NOTE | 2020-02-05 13:59 | NUR ---
CM Note: updated POC CM informed Francesca w/DAD's regarding pt spouse request for provider needs at home. Per Francesca will visit pt today. CM to cont to follow up.
[2020-02-05] MEDS: INSULIN GLARGINE 100 UNITS/ML 10 ML VIAL SQ SCH (20:58)
[2020-02-06 03:30] VITALS: BP 142/72
[2020-02-06 04:46] LABS: BASOPHILS % (AUTO) 0.7 % (0.0-5.0); EOSINOPHILS % (AUTO) 0.8 % (0.0-8.0); HEMATOCRIT 42.6 % (42-54); LYMPHOCYTES % (AUTO) 26.7 % (21.0-51.0); MEAN CORPUSCULAR HEMOGLOBIN 27.5 pg (27.0-33.0); MEAN CORPUSCULAR HGB CONC 31.2 g/dL (32.0-36.0); MONOCYTES % (AUTO) 7.4 % (3.0-13.0); NEUTROPHILS % (AUTO) 58.5 % (40.0-77.0); NUCLEATED RED BLOOD CELLS 0.2 % (0.0-0.19); PLATELET COUNT (AUTO) 380 K/uL (130-400); RED BLOOD CELL COUNT(AUTO) 4.84 MIL/uL (4.50-6.20); RED CELL DISTRIBUTION WIDTH 14.6 % (11.0-15.5); WHITE BLOOD COUNT (AUTO) 11.8 K/uL (4.8-10.8)
[2020-02-06 05:04] LABS: ALBUMIN 2.6 g/dL (3.5-5.0); CREATININE 1.5 mg/dL (0.5-1.5); MAGNESIUM 1.9 mg/dL (1.80-2.40); PHOSPHORUS 4.5 mg/dL (2.5-4.9); POTASSIUM 5.1 mmol/L (3.5-5.1)
[2020-02-06 05:18] LABS: B-TYPE NATRIURETIC PEPTIDE 78 pg/mL (0-100)
[2020-02-06] MEDS: INSULIN HUMULIN R 100 UNIT/ML 3ML SQ SCH ×3 (05:47→18:17)
[2020-02-06] MEDS: VANCOMYCIN 250MG/5ML ORAL SOLUTION 40ML PO SCH ×2 (05:48)
[2020-02-06 07:59] VITALS: BP 134/78
[2020-02-06] MEDS: POTASSIUM CHLORIDE 20 MEQ ERTAB PO SCH (09:15)
[2020-02-06 10:03] VITALS: BP 134/78
--- NOTE | 2020-02-06 12:28 | NUR ---
RD FOLLOW UP NOTE Pt tolerating 60gm CCD with no report of GI distress, PO intake at 100%. RD to monitor renal labs (BUN32, GFR 50, BG 162). Pt continues with antibiotics. RD to continue to monitor. Please notify as additional nutrition concerns arise. Thank you. Addendum: 02/06/20 at [address] RD Amended: Links added.
[2020-02-06 16:35] VITALS: BP 110/60
== END 2020-02-06 20:00 | disposition home or self-care (01) | DRG 871 ==
LOC: EDH 13:43 → EDHIP 18:15 → 3DH 20:37 → 2DH 01-27 04:59 → 2BH 01-28 02:50 → 2CH 01-29 12:25 → 2DH 02-01 05:52 → 4DH 02-03 18:33
PROVIDERS: ADMIT Hospitalist; ATTEND Hospitalist
PROC: 5A09457 Assistance with Respiratory Ventilation, 24-96 Consecutive Hours, Continuous Positive Airway Pressure (ICD-10-PCS; principal; 2020-01-28)
DX: A41.9 Sepsis, unspecified organism (principal); J96.01 Acute respiratory failure with hypoxia; I50.41 Acute combined systolic (congestive) and diastolic (congestive) heart failure; J18.9 Pneumonia, unspecified organism; N17.0 Acute kidney failure with tubular necrosis; N39.0 Urinary tract infection, site not specified; M62.82 Rhabdomyolysis; E87.2 Acidosis; I13.0 Hypertensive heart and chronic kidney disease with heart failure and stage 1 through stage 4 chronic kidney disease, or unspecified chronic kidney disease; G93.49 Other encephalopathy; J44.0 Chronic obstructive pulmonary disease with (acute) lower respiratory infection; J98.11 Atelectasis; A09 Infectious gastroenteritis and colitis, unspecified; A04.72 Enterocolitis due to Clostridium difficile, not specified as recurrent; E83.42 Hypomagnesemia; E87.6 Hypokalemia; E83.39 Other disorders of phosphorus metabolism; D64.9 Anemia, unspecified; E11.22 Type 2 diabetes mellitus with diabetic chronic kidney disease; E11.65 Type 2 diabetes mellitus with hyperglycemia; E66.9 Obesity, unspecified; E78.5 Hyperlipidemia, unspecified; E86.0 Dehydration; F03.90 Unspecified dementia, unspecified severity, without behavioral disturbance, psychotic disturbance, mood disturbance, and anxiety; H91.90 Unspecified hearing loss, unspecified ear; K80.20 Calculus of gallbladder without cholecystitis without obstruction; L30.4 Erythema intertrigo; N18.9 Chronic kidney disease, unspecified; R31.29 Other microscopic hematuria; R65.20 Severe sepsis without septic shock; Z74.01 Bed confinement status; Z78.9 Other specified health status; Z86.19 Personal history of other infectious and parasitic diseases; Z82.3 Family history of stroke; Z83.3 Family history of diabetes mellitus; Z82.5 Family history of asthma and other chronic lower respiratory diseases; Z82.49 Family history of ischemic heart disease and other diseases of the circulatory system; Z82.0 Family history of epilepsy and other diseases of the nervous system; Z80.9 Family history of malignant neoplasm, unspecified; Z68.22 Body mass index [BMI] 22.0-22.9, adult
CPT/HCPCS: 36415; 36600; 71045; 74176; 80048; 80053; 81001; 82040; 82140; 82270; 82550; 82803; 82948; 83036; 83605; 83615; 83630; 83735; 83880; 84100; 84132; 84145; 84484; 85025; 85027; 85610; 85651; 85730; 86140; 87040; 87046; 87088; 87324; 87486; 87507; 87581; 87633; 87635; 87798; 87804; 93005; 93306; 93356; 94640; 94660; 94664; 97039; 99291; A4344; G0378; J0360; J0692; J0696; J1650; J1815; J1940; J1956; J2020; J2185; J2405; J3370; J3475; J3480; J3490; J7030

== ENCOUNTER → 2020-06-20 | Outpatient (CLI) | payer OTHER ==
[~2020-06-20] MED LIST changes: -ATOR10TA69 PO; +FERR-82 PO; +FOLI1 PO; +GADODIAMIDE 10 MMOL/20 ML VIAL IV ONE; -GLIM4TAB36 PO; +OMEP40CA13 PO; +TAMS-1 PO; -TAMS0.4C32 PO
== END | disposition home or self-care (01) ==
LOC: RAH 12:37
PROVIDERS: ATTEND Internal Medicine
DX: G31.9 Degenerative disease of nervous system, unspecified (principal); R79.89 Other specified abnormal findings of blood chemistry
CPT/HCPCS: 70553; A9579

== ENCOUNTER → 2020-11-05 | Outpatient (CLI) | payer OTHER ==
[~2020-11-05] MED LIST changes: -GADODIAMIDE 10 MMOL/20 ML VIAL IV ONE
== END | disposition home or self-care (01) ==
LOC: RAH 13:09
PROVIDERS: ATTEND Internal Medicine
DX: R59.1 Generalized enlarged lymph nodes (principal)
CPT/HCPCS: 76536

== ENCOUNTER 2021-01-09 15:43 | Inpatient (IN) | payer OTHER ==
[~2021-01-09] VITALS: Ht 170.2 cm; Wt 73.7 kg
[~2021-01-09 15:43] MED LIST changes: -OMEP40CA13 PO; +OMEP40CA21 PO
[2021-01-09] MEDS ORDERED: COMPOUND PO MISCELLANEOUS 1 EACH MISC MISC PRN (16:15)
[2021-01-09] MEDS ORDERED: 0.9%NACL 1000ML 1,000 ML IV SCH (16:15)
[2021-01-09] MEDS ORDERED: ACETAMINOPHEN 325 MG TAB PO PRN ×2 (18:00)
[2021-01-09] MEDS ORDERED: DIPHENHYDRAMINE HCL 25 MG CAPSULE PO PRN (18:00)
[2021-01-09] MEDS ORDERED: MORPHINE 2 MG SYG IV PRN (18:00)
[2021-01-09] MEDS ORDERED: NITROGLYCERIN 0.4 MG SL TAB SL PRN (18:00)
[2021-01-09] MEDS ORDERED: ZOLPIDEM TARTRATE 5 MG TAB PO PRN (18:00)
[2021-01-09] MEDS ORDERED: HYDRALAZINE 20MG/ML VIAL IV PRN (18:00)
[2021-01-09] MEDS ORDERED: MAG/ALUM/SIMETH 30 ML UDCUP PO PRN (18:00)
[2021-01-09] MEDS ORDERED: ONDANSETRON 4MG INJ IV PRN (18:00)
[2021-01-09] MEDS ORDERED: DiphenhydrAMINE HCL 50 MG/ML VIAL IV PRN (18:00)
[2021-01-09] MEDS ORDERED: GUAIFENESIN-DM 200/20 MG 10 ML PO PRN (18:00)
[2021-01-09] MEDS ORDERED: VANCOMYCIN 1G 2 GM, 0.9%NACL 20 ML VIAL 80 ML PO SCH ×2 (18:00)
[2021-01-09] MEDS ORDERED: LACTULOSE 20 GM/30 ML UDCUP PO PRN (18:00)
[2021-01-09] MEDS ORDERED: ACETAMINOPHEN WITH CODEINE 1 TAB TAB PO PRN (18:00)
[2021-01-09] MEDS ORDERED: 0.9%NACL 1000ML 1,000 ML IV ONE (18:04)
[2021-01-09 19:30] VITALS: BP 125/61
[2021-01-09] MEDS: ZOSYN 3.375GM+NS 50ML 50 ML IV SCH (20:41)
[2021-01-09] MEDS: INSULIN HUMULIN R 100 UNIT/ML 3ML SQ SCH (20:42)
[2021-01-09] MEDS: 0.9%NACL 1000ML 1,000 ML IV SCH (20:43)
[2021-01-09 23:18] VITALS: BP 153/70
[2021-01-10] MEDS: VANCOMYCIN 1G 2 GM, 0.9%NACL 20 ML VIAL 80 ML PO SCH ×8 (00:40→18:05)
[2021-01-10 03:25] VITALS: BP 157/96
[2021-01-10] MEDS: 0.9%NACL 1000ML 1,000 ML IV SCH ×2 (04:00→14:00)
[2021-01-10 05:19] LABS: BASOPHILS % (AUTO) 0.2 % (0.0-5.0); HEMATOCRIT 30.2 % (42-54); LYMPHOCYTES % (AUTO) 11.3 % (21.0-51.0); MEAN CORPUSCULAR HEMOGLOBIN 27.4 pg (27.0-33.0); MEAN CORPUSCULAR HGB CONC 32.1 g/dL (32.0-36.0); MEAN CORPUSCULAR VOLUME 85.3 fL (79-99); MONOCYTES % (AUTO) 8.4 % (3.0-13.0); NEUTROPHILS % (AUTO) 77.1 % (40.0-77.0); PLATELET COUNT (AUTO) 200 K/uL (130-400); RED BLOOD CELL COUNT(AUTO) 3.54 MIL/uL (4.50-6.20); RED CELL DISTRIBUTION WIDTH 14.4 % (11.0-15.5); WHITE BLOOD COUNT (AUTO) 13.2 K/uL (4.8-10.8)
[2021-01-10 05:33] LABS: ALBUMIN 2.5 g/dL (3.5-5.0); BILIRUBIN,TOTAL 0.3 mg/dL (0.2-1.0); CREATININE 1.3 mg/dL (0.5-1.5); INR 1.1 (0.85-1.15); MAGNESIUM 3.1 mg/dL (1.80-2.40); POTASSIUM 3.2 mmol/L (3.5-5.1); PROTHROMBIN TIME 11.9 SEC (9.6-11.6); TOTAL PROTEIN, SERUM 6.8 g/dL (6.0-8.3)
[2021-01-10 05:34] LABS: PARTIAL THROMBOPLASTIN TIME 26.7 SEC (26.3-35.5)
[2021-01-10 05:52] LABS: HEMOGLOBIN A1C 7.3 % (4.0-6.0)
[2021-01-10] MEDS: INSULIN HUMULIN R 100 UNIT/ML 3ML SQ SCH ×4 (06:03→21:23)
[2021-01-10] MEDS: ZOSYN 3.375GM+NS 50ML 50 ML IV SCH ×3 (06:05→21:19)
[2021-01-10 06:11] LABS: B-TYPE NATRIURETIC PEPTIDE 47 pg/mL (0-100)
[2021-01-10] MEDS ORDERED: POTASSIUM CHLORIDE 10% ELIXIR 20 MEQ/15 ML UDCUP PO PRN (07:45)
[2021-01-10] MEDS ORDERED: POTASSIUM CHLORIDE 20MEQ/100ML 100 ML IV PRN ×2 (07:45)
[2021-01-10] MEDS ORDERED: MAGNESIUM 2GM PREMIX 50ML 50 ML IV PRN (07:45)
[2021-01-10] MEDS ORDERED: LIDOCAINE HCL-MPF 1% 2ML VIAL IV PRN ×2 (07:45)
[2021-01-10 08:01] VITALS: BP 134/74
[2021-01-10] MEDS ORDERED: SITA50TA PO (08:46)
[2021-01-10] MEDS ORDERED: LISI2.5T13 PO (08:46)
[2021-01-10] MEDS ORDERED: CEPH500B PO (08:51)
[2021-01-10] MEDS ORDERED: CYAN250014 PO (08:51)
[2021-01-10] MEDS: ENOXAPARIN SODIUM 30 MG/0.3 ML SQ SCH (09:13)
[2021-01-10 11:26] VITALS: BP 116/76
[2021-01-10 16:31] VITALS: BP 127/65
[2021-01-10 19:39] VITALS: BP 126/64
[2021-01-10] MEDS: KCL 20 MEQ ERTAB PO PRN ×2 (21:21→23:44)
[2021-01-10] MEDS: SIMVASTATIN 20 MG TABLET PO SCH (21:23)
[2021-01-10] MEDS: CILOSTAZOL 100 MG TAB PO SCH (21:23)
[2021-01-10] MEDS: LISINOPRIL 2.5 MG TABLET PO SCH (21:24)
[2021-01-11] VITALS (7 sets, daily range): BP systolic 121–138; BP diastolic 66–85
[2021-01-11] MEDS: ZOSYN 3.375GM+NS 50ML 50 ML IV SCH ×3 (05:35→21:04)
[2021-01-11 05:52] LABS: HEMATOCRIT 29.8 % (42-54); MEAN CORPUSCULAR HEMOGLOBIN 28.2 pg (27.0-33.0); MEAN CORPUSCULAR HGB CONC 32.6 g/dL (32.0-36.0); MEAN CORPUSCULAR VOLUME 86.6 fL (79-99); RED BLOOD CELL COUNT(AUTO) 3.44 MIL/uL (4.50-6.20); RED CELL DISTRIBUTION WIDTH 14.3 % (11.0-15.5); WHITE BLOOD COUNT (AUTO) 11.8 K/uL (4.8-10.8)
[2021-01-11 06:06] LABS: CREATININE 1.4 mg/dL (0.5-1.5); MAGNESIUM 1.3 mg/dL (1.80-2.40); POTASSIUM 4.1 mmol/L (3.5-5.1)
[2021-01-11] MEDS: VANCOMYCIN 1G 2 GM, 0.9%NACL 20 ML VIAL 80 ML PO SCH ×6 (06:49→12:17)
[2021-01-11] MEDS: INSULIN HUMULIN R 100 UNIT/ML 3ML SQ SCH ×4 (06:53→21:06)
[2021-01-11] MEDS: CILOSTAZOL 100 MG TAB PO SCH ×2 (08:09→21:05)
[2021-01-11] MEDS: TAMSULOSIN HCL 0.4 MG CAP.ER.24H PO SCH (08:09)
[2021-01-11] MEDS: FOLIC ACID 1 MG TABLET PO SCH (08:09)
[2021-01-11] MEDS: ENOXAPARIN SODIUM 30 MG/0.3 ML SQ SCH (08:09)
[2021-01-11] MEDS: MAGNESIUM 2GM PREMIX 50ML 50 ML IV PRN (08:10)
[2021-01-11] MEDS: 0.9%NACL 1000ML 1,000 ML IV SCH ×2 (10:00)
[2021-01-11 16:01] LABS: APPEARANCE,URINE Clear (CLEAR); BILIRUBIN,URINE Negative (NEGATIVE); COLOR,URINE Yellow (YELLOW); GLUCOSE, URINE (UA) >=1000 mg/dL (NEGATIVE); KETONES,URINE Negative (NEGATIVE); LEUKOCYTE ESTERASE ,URINE Negative (NEGATIVE); NITRATE,URINE Negative (NEGATIVE); OCCULT BLOOD,URINE Negative (NEGATIVE); PH,URINE 6.5 (5.0-8.0); PROTEIN,URINE Trace mg/dL (NEGATIVE); UROBILINOGEN,URINE 0.2 mg/dL (0.2-1.0)
[2021-01-11 16:15] LABS: BACTERIA,URINE None Seen /HPF (None Seen); MUCUS,URINE Few LPF (None Seen); RBC,URINE 0-1 /HPF (0-1); SQUAMOUS EPITHELIAL CELL,UR 0-2 /HPF (0-2); WBC,URINE 0-1 /HPF (0-1)
[2021-01-11] MEDS: SIMVASTATIN 20 MG TABLET PO SCH (21:05)
[2021-01-11] MEDS: LISINOPRIL 2.5 MG TABLET PO SCH (21:05)
[2021-01-12] MEDS: 0.9%NACL 1000ML 1,000 ML IV SCH (00:37)
[2021-01-12 04:14] VITALS: BP 132/76
[2021-01-12] MEDS: ZOSYN 3.375GM+NS 50ML 50 ML IV SCH ×2 (05:06→13:25)
[2021-01-12] MEDS: MAGNESIUM 2GM PREMIX 50ML 50 ML IV PRN (06:13)
[2021-01-12] MEDS: INSULIN HUMULIN R 100 UNIT/ML 3ML SQ SCH ×3 (06:20→17:56)
[2021-01-12 07:00] VITALS: BP 126/74
[2021-01-12] MEDS: CILOSTAZOL 100 MG TAB PO SCH (08:43)
[2021-01-12] MEDS: FOLIC ACID 1 MG TABLET PO SCH (08:43)
[2021-01-12] MEDS: TAMSULOSIN HCL 0.4 MG CAP.ER.24H PO SCH (08:43)
[2021-01-12] MEDS: ENOXAPARIN SODIUM 30 MG/0.3 ML SQ SCH (08:44)
[2021-01-12 11:30] VITALS: BP 144/72
[2021-01-12] MEDS ORDERED: CIPR-278 PO (15:12)
[2021-01-12 16:00] VITALS: BP 118/68
[2021-01-12] MEDS ORDERED: INSULIN GLARGINE 100 UNITS/ML 10 ML VIAL SQ SCH (21:00)
== END 2021-01-12 18:30 | disposition home or self-care (01) | DRG 872 ==
LOC: EDH 15:43 → EDHIP 15:54 → 3BH 19:21
PROVIDERS: ADMIT Internal Medicine; ATTEND Internal Medicine
DX: A41.9 Sepsis, unspecified organism (principal); C94.6 Myelodysplastic disease, not elsewhere classified; N40.0 Benign prostatic hyperplasia without lower urinary tract symptoms; I10 Essential (primary) hypertension; H91.90 Unspecified hearing loss, unspecified ear; R53.81 Other malaise; E78.5 Hyperlipidemia, unspecified; E11.9 Type 2 diabetes mellitus without complications; E86.0 Dehydration; Z79.02 Long term (current) use of antithrombotics/antiplatelets; Z79.899 Other long term (current) drug therapy; Z79.84 Long term (current) use of oral hypoglycemic drugs
CPT/HCPCS: 36415; 71045; 74176; 80048; 80053; 80061; 81001; 82140; 82948; 83036; 83630; 83735; 83880; 84145; 85025; 85027; 85378; 85610; 85730; 87040; 87046; 87088; 87177; 87324; 87328; 87507; 97039; G0378; J1650; J1815; J2543; J3370; J3475; J7030

== ENCOUNTER → 2021-02-20 | Outpatient (CLI) | payer OTHER ==
[~2021-02-20] MED LIST changes: +CIPR-278 PO; +CYAN250014 PO; +LISI2.5T2 PO; +OMEP40CA13 PO; -OMEP40CA21 PO; +SITA50TA PO
== END | disposition home or self-care (01) ==
LOC: RAH 10:03
PROVIDERS: ATTEND Internal Medicine
DX: K80.20 Calculus of gallbladder without cholecystitis without obstruction (principal)
CPT/HCPCS: 76700

== ENCOUNTER → 2022-03-12 | Outpatient (CLI) | payer OTHER ==
[~2022-03-12] MED LIST changes: +IOHEXOL 350 MG/ML 100ML INFUS..BTL IV ONE; +IOHEXOL-350 50ML VIAL IV ONE; +LISI2.5T13 PO; -LISI2.5T2 PO; -OMEP40CA13 PO; +OMEP40CA21 PO
== END | disposition home or self-care (01) ==
LOC: RAH 09:32
PROVIDERS: ATTEND Internal Medicine Cardiovascular Disease
DX: I70.203 Unspecified atherosclerosis of native arteries of extremities, bilateral legs (principal); I70.0 Atherosclerosis of aorta; N32.89 Other specified disorders of bladder
CPT/HCPCS: 75635; Q9967 ×2

== ENCOUNTER → 2022-07-15 | Outpatient (CLI) | payer OTHER ==
[~2022-07-15] MED LIST changes: -IOHEXOL 350 MG/ML 100ML INFUS..BTL IV ONE; -IOHEXOL-350 50ML VIAL IV ONE
[2022-07-15 12:50] LABS: BASOPHILS % (AUTO) 0.3 % (0.0-5.0); EOSINOPHILS % (AUTO) 1.3 % (0.0-8.0); HEMATOCRIT 43.7 % (42-54); LYMPHOCYTES % (AUTO) 22.2 % (21.0-51.0); MEAN CORPUSCULAR HEMOGLOBIN 27.6 pg (27.0-33.0); MEAN CORPUSCULAR HGB CONC 31.1 g/dL (32.0-36.0); MEAN CORPUSCULAR VOLUME 88.6 fL (79-99); MONOCYTES % (AUTO) 7.2 % (3.0-13.0); NEUTROPHILS % (AUTO) 67.9 % (40.0-77.0); NUCLEATED RED BLOOD CELLS 0.2 % (0.0-0.19); PLATELET COUNT (AUTO) 214 K/uL (130-400); RED BLOOD CELL COUNT(AUTO) 4.93 MIL/uL (4.50-6.20); RED CELL DISTRIBUTION WIDTH 13.9 % (11.0-15.5); WHITE BLOOD COUNT (AUTO) 10.5 K/uL (4.8-10.8)
[2022-07-15 12:59] LABS: INR 0.99 (0.85-1.15); PROTHROMBIN TIME 10.8 SEC (9.6-11.6)
[2022-07-15 13:00] LABS: PARTIAL THROMBOPLASTIN TIME 27.1 SEC (26.3-35.5)
[2022-07-15 13:07] LABS: ALBUMIN 3.6 g/dL (3.5-5.0); CREATININE 1.6 mg/dL (0.5-1.5); POTASSIUM 4.6 mmol/L (3.5-5.1); TOTAL PROTEIN, SERUM 7.8 g/dL (6.0-8.3)
== END | disposition home or self-care (01) ==
LOC: LAB 11:03
PROVIDERS: ATTEND Internal Medicine Cardiovascular Disease
DX: E78.5 Hyperlipidemia, unspecified (principal); D64.9 Anemia, unspecified; I73.9 Peripheral vascular disease, unspecified; Z79.01 Long term (current) use of anticoagulants
CPT/HCPCS: 36415; 80053; 85025; 85610; 85730

== ENCOUNTER → 2022-08-13 | Outpatient (CLI) | payer OTHER ==
[2022-08-13 12:27] LABS: BASOPHILS % (AUTO) 0.3 % (0.0-5.0); EOSINOPHILS % (AUTO) 1.6 % (0.0-8.0); HEMATOCRIT 41.7 % (42-54); LYMPHOCYTES % (AUTO) 26.2 % (21.0-51.0); MEAN CORPUSCULAR HEMOGLOBIN 27.2 pg (27.0-33.0); MEAN CORPUSCULAR HGB CONC 31.7 g/dL (32.0-36.0); MEAN CORPUSCULAR VOLUME 85.8 fL (79-99); MONOCYTES % (AUTO) 7.1 % (3.0-13.0); NEUTROPHILS % (AUTO) 63.8 % (40.0-77.0); PLATELET COUNT (AUTO) 213 K/uL (130-400); RED BLOOD CELL COUNT(AUTO) 4.86 MIL/uL (4.50-6.20); RED CELL DISTRIBUTION WIDTH 14.4 % (11.0-15.5); WHITE BLOOD COUNT (AUTO) 7.7 K/uL (4.8-10.8)
[2022-08-13 12:30] LABS: CREATININE 1.6 mg/dL (0.5-1.5); POTASSIUM 4.2 mmol/L (3.5-5.1)
[2022-08-13 12:56] LABS: INR 0.98 (0.85-1.15); PROTHROMBIN TIME 10.7 SEC (9.6-11.6)
[2022-08-13 12:57] LABS: PARTIAL THROMBOPLASTIN TIME 24.8 SEC (26.3-35.5)
== END | disposition home or self-care (01) ==
LOC: LAB 10:52
PROVIDERS: ATTEND Internal Medicine Cardiovascular Disease
DX: I73.9 Peripheral vascular disease, unspecified (principal); E11.9 Type 2 diabetes mellitus without complications; Z86.2 Personal history of diseases of the blood and blood-forming organs and certain disorders involving the immune mechanism
CPT/HCPCS: 36415; 80048; 85025; 85610; 85730

== ENCOUNTER → 2022-10-13 | Outpatient (CLI) | payer OTHER ==
[~2022-10-13] MED LIST changes: -CILO100T PO; +CILO100T3 PO
== END | disposition home or self-care (01) ==
LOC: RAH 09:06
PROVIDERS: ATTEND Internal Medicine
DX: N40.1 Benign prostatic hyperplasia with lower urinary tract symptoms (principal); R35.1 Nocturia; N21.0 Calculus in bladder
CPT/HCPCS: 76857

== ENCOUNTER 2022-10-21 11:33 | Emergency (ER) | payer OTHER ==
[~2022-10-21] VITALS: Ht 167.6 cm; Wt 72.1 kg
[2022-10-21 12:21] LABS: BASOPHILS % (AUTO) 0.3 % (0.0-5.0); EOSINOPHILS % (AUTO) 1.3 % (0.0-8.0); HEMATOCRIT 39.8 % (42-54); MEAN CORPUSCULAR HEMOGLOBIN 27.1 pg (27.0-33.0); MEAN CORPUSCULAR HGB CONC 32.4 g/dL (32.0-36.0); MEAN CORPUSCULAR VOLUME 83.6 fL (79-99); MONOCYTES % (AUTO) 9.5 % (3.0-13.0); NEUTROPHILS % (AUTO) 70.4 % (40.0-77.0); NUCLEATED RED BLOOD CELLS 0.3 % (0.0-0.19); PLATELET COUNT (AUTO) 163 K/uL (130-400); RED BLOOD CELL COUNT(AUTO) 4.76 MIL/uL (4.50-6.20); RED CELL DISTRIBUTION WIDTH 14.6 % (11.0-15.5); WHITE BLOOD COUNT (AUTO) 11.7 K/uL (4.8-10.8)
[2022-10-21] MEDS ORDERED: 0.9%NACL 1000ML 1,000 ML IV ONE ×2 (12:25→12:30)
[2022-10-21 12:34] LABS: ALBUMIN 3.3 g/dL (3.5-5.0); CREATININE 2.1 mg/dL (0.5-1.5); POTASSIUM 4.1 mmol/L (3.5-5.1); TOTAL PROTEIN, SERUM 7.8 g/dL (6.0-8.3)
[2022-10-21 12:52] LABS: APPEARANCE,URINE CLOUDY (CLEAR); BILIRUBIN,URINE NEGATIVE (NEGATIVE); COLOR,URINE YELLOW (YELLOW); GLUCOSE, URINE (UA) 500 mg/dL (NEGATIVE); KETONES,URINE NEGATIVE (NEGATIVE); LEUKOCYTE ESTERASE ,URINE 500 Leu/uL (NEGATIVE); NITRATE,URINE NEGATIVE (NEGATIVE); OCCULT BLOOD,URINE NEGATIVE (NEGATIVE); PROTEIN,URINE 50 mg/dL (NEGATIVE); UROBILINOGEN,URINE 0.2 mg/dL (0.2-1.0)
[2022-10-21 13:20] LABS: BACTERIA,URINE FEW /HPF (None Seen); MUCUS,URINE RARE LPF (None Seen); RBC,URINE 26-50 /HPF (0-1); WBC,URINE TNTC /HPF (0-1); YEAST,URINE BUDDING MANY /HPF (None Seen)
[2022-10-21] MEDS ORDERED: CEFTRIAXONE 1G VIAL IVP ONE (14:00)
[2022-10-21 14:02] VITALS: BP 114/59
[2022-10-21] MEDS ORDERED: CEPH500B PO (14:40)
== END 2022-10-21 14:50 | disposition home or self-care (01) ==
LOC: EDH 11:33
DX: S20.221A Contusion of right back wall of thorax, initial encounter (principal); N39.0 Urinary tract infection, site not specified; E11.9 Type 2 diabetes mellitus without complications; I10 Essential (primary) hypertension; Z79.899 Other long term (current) drug therapy; W08.XXXA Fall from other furniture, initial encounter; Y93.89 Activity, other specified; Y92.89 Other specified places as the place of occurrence of the external cause; Y99.8 Other external cause status
CPT/HCPCS: 99284; 74176; 96374; 96361; 80053; 85025; 87088; 81001; 36415; J7030; J0696

== ENCOUNTER → 2023-01-19 | Outpatient (CLI) | payer OTHER ==
[~2023-01-19] MED LIST changes: +CEPH500B PO
== END | disposition home or self-care (01) ==
LOC: RAH 12:13
PROVIDERS: ATTEND Internal Medicine
DX: R13.10 Dysphagia, unspecified (principal); K21.9 Gastro-esophageal reflux disease without esophagitis
CPT/HCPCS: 74230; 92611

== ENCOUNTER → 2023-03-01 | Outpatient (CLI) | payer OTHER ==
[~2023-03-01] MED LIST changes: +IOHEXOL-350 75 ML VIAL IV ONE
== END | disposition home or self-care (01) ==
LOC: RAH 12:56
PROVIDERS: ATTEND Internal Medicine
DX: N21.0 Calculus in bladder (principal); N32.89 Other specified disorders of bladder; R31.0 Gross hematuria; N40.0 Benign prostatic hyperplasia without lower urinary tract symptoms; N28.89 Other specified disorders of kidney and ureter; M47.815 Spondylosis without myelopathy or radiculopathy, thoracolumbar region; Z90.49 Acquired absence of other specified parts of digestive tract
CPT/HCPCS: 74178; Q9967

== ENCOUNTER 2023-03-04 12:11 | Emergency (ER) | payer OTHER ==
[~2023-03-04] VITALS: Ht 170.2 cm; Wt 70.3 kg
[~2023-03-04 12:11] MED LIST changes: -IOHEXOL-350 75 ML VIAL IV ONE
[2023-03-04] MEDS ORDERED: 0.9%NACL 1000ML 500 ML IV ONE (13:00)
[2023-03-04 13:21] LABS: BASOPHILS % (AUTO) 0.2 % (0.0-5.0); EOSINOPHILS % (AUTO) 0.4 % (0.0-8.0); HEMATOCRIT 37.2 % (42-54); LYMPHOCYTES % (AUTO) 14.5 % (21.0-51.0); MEAN CORPUSCULAR HEMOGLOBIN 27.3 pg (27.0-33.0); MEAN CORPUSCULAR HGB CONC 32.5 g/dL (32.0-36.0); MEAN CORPUSCULAR VOLUME 83.8 fL (79-99); MONOCYTES % (AUTO) 9.2 % (3.0-13.0); NEUTROPHILS % (AUTO) 74.6 % (40.0-77.0); PLATELET COUNT (AUTO) 205 K/uL (130-400); RED BLOOD CELL COUNT(AUTO) 4.44 MIL/uL (4.50-6.20); RED CELL DISTRIBUTION WIDTH 14.7 % (11.0-15.5); WHITE BLOOD COUNT (AUTO) 12.2 K/uL (4.8-10.8)
[2023-03-04 13:28] LABS: CREATININE 1.7 mg/dL (0.5-1.5); POTASSIUM 3.6 mmol/L (3.5-5.1)
[2023-03-04 13:32] LABS: ALBUMIN 3.4 g/dL (3.5-5.0); TOTAL PROTEIN, SERUM 7.8 g/dL (6.0-8.3)
[2023-03-04 17:54] LABS: APPEARANCE,URINE CLOUDY (CLEAR); BILIRUBIN,URINE NEGATIVE (NEGATIVE); COLOR,URINE YELLOW (YELLOW); GLUCOSE, URINE (UA) 300 mg/dL (NEGATIVE); KETONES,URINE NEGATIVE (NEGATIVE); LEUKOCYTE ESTERASE ,URINE 500 Leu/uL (NEGATIVE); NITRATE,URINE NEGATIVE (NEGATIVE); OCCULT BLOOD,URINE LARGE (NEGATIVE); PROTEIN,URINE 70 mg/dL (NEGATIVE); UROBILINOGEN,URINE 0.2 mg/dL (0.2-1.0)
[2023-03-04 17:59] LABS: BACTERIA,URINE RARE /HPF (None Seen); MUCUS,URINE RARE LPF (None Seen); RBC,URINE 26-50 /HPF (0-1); SQUAMOUS EPITHELIAL CELL,UR RARE /HPF (0-2); WBC,URINE >100 /HPF (0-1); YEAST,URINE BUDDING MOD /HPF (None Seen)
[2023-03-04] MEDS ORDERED: CEPH500B PO (18:28)
[2023-03-04] MEDS ORDERED: CEFTRIAXONE 1G VIAL IVPB ONE (18:30)
[2023-03-04 19:30] VITALS: BP 124/63
== END 2023-03-04 19:54 | disposition home or self-care (01) ==
LOC: EDH 12:11
DX: N39.0 Urinary tract infection, site not specified (principal); E11.9 Type 2 diabetes mellitus without complications; I10 Essential (primary) hypertension; Z79.84 Long term (current) use of oral hypoglycemic drugs
CPT/HCPCS: 99285; 96365; 71045; 96366; 84484; 80053; 85025; 87040 ×2; 87088; 83605; 81001; 36415; 93005; J7040; J0696

== ENCOUNTER 2023-07-01 08:51 | Day surgery (SDC) | payer OTHER ==
[2023-06-25 11:29] VITALS: BP 121/61; PULSE 90; RESP 19
[2023-06-25 11:45] LABS: ADD UA MICROSCOPIC YES
[2023-06-25 11:50] LABS: APPEARANCE,URINE CLOUDY (CLEAR); BACTERIA,URINE MANY /HPF (None Seen); BILIRUBIN,URINE NEGATIVE (NEGATIVE); COLOR,URINE YELLOW (YELLOW); GLUCOSE, URINE (UA) >=1000 mg/dL (NEGATIVE); KETONES,URINE NEGATIVE (NEGATIVE); LEUKOCYTE ESTERASE ,URINE 500 Leu/uL (NEGATIVE); MUCUS,URINE RARE LPF (None Seen); NITRATE,URINE NEGATIVE (NEGATIVE); OCCULT BLOOD,URINE SMALL (NEGATIVE); PH,URINE 5.5 (5.0-8.0); PROTEIN,URINE 30 mg/dL (NEGATIVE); RBC,URINE 26-50 /HPF (0-1); SQUAMOUS EPITHELIAL CELL,UR RARE /HPF (0-2); UROBILINOGEN,URINE 0.2 mg/dL (0.2-1.0); WBC CLUMP FEW /HPF (0-1); WBC,URINE TNTC /HPF (0-1); YEAST,URINE BUDDING MANY /HPF (None Seen)
[2023-06-25 11:55] LABS: BASOPHILS # (AUTO) 0.04 K/uL (0.00-0.20); BASOPHILS % (AUTO) 0.4 % (0.0-5.0); EOSINOPHILS # (AUTO) 0.08 K/uL (0.00-0.70); EOSINOPHILS % (AUTO) 0.8 % (0.0-8.0); HEMATOCRIT 40.6 % (42-54); IMMATURE GRANULOCYTE ABSOLUTE 0.37 K/uL (0-1); LYMPHOCYTES # (AUTO) 1.7 K/uL (1.0-4.8); LYMPHOCYTES % (AUTO) 17.8 % (21.0-51.0); MEAN CORPUSCULAR HEMOGLOBIN 28.6 pg (27.0-33.0); MEAN CORPUSCULAR VOLUME 86.6 fL (79-99); MONOCYTES # (AUTO) 0.7 K/uL (0.1-1.0); MONOCYTES % (AUTO) 7.3 % (3.0-13.0); NEUTROPHILS # (AUTO) 6.8 K/uL (1.8-7.7); NEUTROPHILS % (AUTO) 69.9 % (40.0-77.0); NUCLEATED RED BLOOD CELLS 0.3 % (0.0-0.19); PLATELET COUNT (AUTO) 186 K/uL (130-400); RED BLOOD CELL COUNT(AUTO) 4.69 MIL/uL (4.50-6.20); RED CELL DISTRIBUTION WIDTH 14.6 % (11.0-15.5); WHITE BLOOD COUNT (AUTO) 9.7 K/uL (4.8-10.8)
[2023-06-25 12:04] LABS: CREATININE 1.3 mg/dL (0.5-1.5); POTASSIUM 3.5 mmol/L (3.5-5.1)
[2023-06-25 12:09] LABS: INR 0.97 (0.85-1.15); PROTHROMBIN TIME 11.3 SEC (9.6-11.6)
[2023-06-25 12:10] LABS: PARTIAL THROMBOPLASTIN TIME 29.1 SEC (26.3-35.5)
[~2023-07-01] VITALS: Ht 167.6 cm; Wt 69.6 kg
[2023-07-01] VITALS (17 sets, daily range): BP systolic 142–163; BP diastolic 81–93; PULSE 70–92; RESP 13–18
[2023-07-01] MEDS ORDERED: CEFTRIAXONE 1G VIAL ONE (09:04)
[2023-07-01] MEDS ORDERED: 0.9%NACL 1000ML 1,000 ML IV ONE (09:04)
[2023-07-01] MEDS ORDERED: LEVO-70 PO (09:43)
[2023-07-01] MEDS ORDERED: DULO30CA52 PO (09:43)
[2023-07-01] MEDS ORDERED: FLUC150T48 PO (09:43)
[2023-07-01] MEDS ORDERED: ROSU5TAB12 PO (09:43)
[2023-07-01] MEDS ORDERED: ASPI-1197 PO (09:43)
[2023-07-01] MEDS ORDERED: GLIP5TAB11 PO ×2 (09:43)
[2023-07-01] MEDS ORDERED: SUCCINYLCHOLINE 200MG/10ML SYR ONE (11:35)
[2023-07-01] MEDS ORDERED: LIDOCAINE PF 100MG/5ML (2%) SYRINGE 5ML ONE (11:35)
[2023-07-01] MEDS ORDERED: MIDAZOLAM HCL 1 MG/ML 2ML VIAL ONE (11:36)
[2023-07-01] MEDS ORDERED: FENTANYL CITRATE PF 50 MCG/1 ML 2ML VIAL ONE (11:36)
[2023-07-01] MEDS ORDERED: ROCURONIUM 10MG/1ML SYR 10 MG/ML ML ONE (11:36)
[2023-07-01] MEDS ORDERED: PROPOFOL 10 MG/ML 20ML VIAL IV ONE (11:36)
[2023-07-01] MEDS ORDERED: BACITRACIN 1 EACH PACKET TP ONE (15:05)
== END 2023-07-01 15:15 | disposition home or self-care (01) ==
LOC: DAH 08:51
PROVIDERS: ATTEND Urology
DX: N40.1 Benign prostatic hyperplasia with lower urinary tract symptoms (principal); Z20.822 Contact with and (suspected) exposure to COVID-19; N21.0 Calculus in bladder; R33.8 Other retention of urine; E11.9 Type 2 diabetes mellitus without complications; K21.9 Gastro-esophageal reflux disease without esophagitis; I10 Essential (primary) hypertension; E66.9 Obesity, unspecified; I45.2 Bifascicular block; Z79.899 Other long term (current) drug therapy; Z90.49 Acquired absence of other specified parts of digestive tract; Z98.890 Other specified postprocedural states; Z79.01 Long term (current) use of anticoagulants
CPT/HCPCS: 71045; 80048; 85025; 85610; 85730; 87088; 81001; 36415; 93005; 52648; 52317; 82948 ×2; 88305; A6260; A4663; J7030 ×2; A4354; J3010; J0330; J2001; J0696; J2250; J2704; A4358; A4930; A4215; A4223; A4222; A4221; A4600; J3490

== ENCOUNTER 2023-07-08 04:25 | Emergency (ER) | payer OTHER ==
[~2023-07-08] VITALS: Ht 170.2 cm; Wt 68.5 kg
[~2023-07-08 04:25] MED LIST changes: +ASPI-1197 PO; -CEPH500B PO; -CIPR-278 PO; +DULO30CA52 PO; +FLUC150T48 PO; +LEVO-70 PO; -LISI2.5T13 PO; -METF-446 PO; -OMEP40CA21 PO; +ROSU5TAB12 PO; -SIMV-43 PO
[2023-07-08 05:05] LABS: BASOPHILS # (AUTO) 0.08 K/uL (0.00-0.20); BASOPHILS % (AUTO) 0.6 % (0.0-5.0); EOSINOPHILS # (AUTO) 0.24 K/uL (0.00-0.70); EOSINOPHILS % (AUTO) 1.7 % (0.0-8.0); IMMATURE GRANULOCYTE ABSOLUTE 0.94 K/uL (0-1); LYMPHOCYTES # (AUTO) 1.3 K/uL (1.0-4.8); LYMPHOCYTES % (AUTO) 9.1 % (21.0-51.0); MEAN CORPUSCULAR HEMOGLOBIN 28.4 pg (27.0-33.0); MEAN CORPUSCULAR HGB CONC 32.6 g/dL (32.0-36.0); MEAN CORPUSCULAR VOLUME 87.1 fL (79-99); MONOCYTES # (AUTO) 1.1 K/uL (0.1-1.0); MONOCYTES % (AUTO) 7.6 % (3.0-13.0); NEUTROPHILS # (AUTO) 10.7 K/uL (1.8-7.7); NEUTROPHILS % (AUTO) 74.4 % (40.0-77.0); NUCLEATED RED BLOOD CELLS 0.7 % (0.0-0.19); PLATELET COUNT (AUTO) 224 K/uL (130-400); RED BLOOD CELL COUNT(AUTO) 4.02 MIL/uL (4.50-6.20); RED CELL DISTRIBUTION WIDTH 14.7 % (11.0-15.5); WHITE BLOOD COUNT (AUTO) 14.3 K/uL (4.8-10.8)
[2023-07-08 05:09] LABS: BILIRUBIN,URINE NEGATIVE (NEGATIVE); COLOR,URINE YELLOW (YELLOW); GLUCOSE, URINE (UA) 100 mg/dL (NEGATIVE); KETONES,URINE NEGATIVE (NEGATIVE); LEUKOCYTE ESTERASE ,URINE SMALL Leu/uL (NEGATIVE); NITRATE,URINE NEGATIVE (NEGATIVE); OCCULT BLOOD,URINE LARGE (NEGATIVE); PROTEIN,URINE 100 mg/dL (NEGATIVE); UROBILINOGEN,URINE 0.2 mg/dL (0.2-1.0)
[2023-07-08 05:15] LABS: INR 1.02 (0.85-1.15); PROTHROMBIN TIME 11.8 SEC (9.6-11.6)
[2023-07-08 05:16] LABS: PARTIAL THROMBOPLASTIN TIME 29.4 SEC (26.3-35.5)
[2023-07-08 05:18] LABS: BILIRUBIN,TOTAL 0.7 mg/dL (0.2-1.0); CREATININE 1.3 mg/dL (0.5-1.5); POTASSIUM 3.5 mmol/L (3.5-5.1); TOTAL PROTEIN, SERUM 7.3 g/dL (6.0-8.3)
[2023-07-08 05:19] LABS: ADD UA MICROSCOPIC YES; APPEARANCE,URINE CLOUDY (CLEAR)
[2023-07-08 05:25] LABS: BACTERIA,URINE None Seen /HPF (None Seen); SQUAMOUS EPITHELIAL CELL,UR Few /HPF (0-2); WBC,URINE 26-50 /HPF (0-1); YEAST,URINE BUDDING Moderate /HPF (None Seen)
[2023-07-08] MEDS ORDERED: CEFTRIAXONE 1G VIAL IVPB ONE (06:00)
[2023-07-08] MEDS ORDERED: 0.9%NACL 1000ML 2,500 ML IV ONE (06:00)
[2023-07-08] MEDS ORDERED: INSULIN HUMULIN R 100 UNIT/ML 3ML SQ ONE (09:00)
[2023-07-08 09:55] VITALS: BP 131/77; PULSE 125; RESP 17; O2SAT 95
[2023-07-08] MEDS ORDERED: CEPH500B PO (10:23)
== END 2023-07-08 10:32 | disposition home or self-care (01) ==
LOC: EDH 04:25
DX: N39.0 Urinary tract infection, site not specified (principal); E11.65 Type 2 diabetes mellitus with hyperglycemia; I10 Essential (primary) hypertension; Z79.02 Long term (current) use of antithrombotics/antiplatelets; Z79.82 Long term (current) use of aspirin; Z79.84 Long term (current) use of oral hypoglycemic drugs; Z79.899 Other long term (current) drug therapy
CPT/HCPCS: 99285; 96374; 70450; 71045; 84443; 82550; 84484 ×2; 80053; 83690; 85025; 85610; 85730; 87040 ×2; 87088; 82948; 83605; 81001; 36415; 93005 ×2; J1815; J7030; J0696

== ENCOUNTER 2023-07-16 16:29 | Inpatient (IN) | payer OTHER ==
[~2023-07-16] VITALS: Ht 170.2 cm; Wt 66.0 kg
[~2023-07-16 16:29] MED LIST changes: +CEPH500B PO
[2023-07-16] MEDS ORDERED: 0.9%NACL 1000ML 1,000 ML IV ONE (17:30)
[2023-07-16 18:06] LABS: BASOPHILS # (AUTO) 0.08 K/uL (0.00-0.20); BASOPHILS % (AUTO) 0.4 % (0.0-5.0); EOSINOPHILS # (AUTO) 0.06 K/uL (0.00-0.70); EOSINOPHILS % (AUTO) 0.3 % (0.0-8.0); HEMATOCRIT 36.4 % (42-54); IMMATURE GRANULOCYTE ABSOLUTE 0.96 K/uL (0-1); LYMPHOCYTES # (AUTO) 1.7 K/uL (1.0-4.8); LYMPHOCYTES % (AUTO) 8.1 % (21.0-51.0); MEAN CORPUSCULAR HEMOGLOBIN 27.8 pg (27.0-33.0); MEAN CORPUSCULAR HGB CONC 31.6 g/dL (32.0-36.0); MEAN CORPUSCULAR VOLUME 88.1 fL (79-99); MONOCYTES # (AUTO) 1.7 K/uL (0.1-1.0); NEUTROPHILS # (AUTO) 16.7 K/uL (1.8-7.7); NEUTROPHILS % (AUTO) 78.7 % (40.0-77.0); NUCLEATED RED BLOOD CELLS 0.2 % (0.0-0.19); PLATELET COUNT (AUTO) 370 K/uL (130-400); RED BLOOD CELL COUNT(AUTO) 4.13 MIL/uL (4.50-6.20); RED CELL DISTRIBUTION WIDTH 15.1 % (11.0-15.5); WHITE BLOOD COUNT (AUTO) 21.2 K/uL (4.8-10.8)
[2023-07-16 18:30] LABS: CREATININE 1.6 mg/dL (0.5-1.5); POTASSIUM 3.8 mmol/L (3.5-5.1)
[2023-07-16 18:35] LABS: ALBUMIN 3.2 g/dL (3.5-5.0); BILIRUBIN,TOTAL 0.8 mg/dL (0.2-1.0); TOTAL PROTEIN, SERUM 8.7 g/dL (6.0-8.3)
[2023-07-16] MEDS ORDERED: ACETAMINOPHEN 500 MG TABLET PO ONE (19:00)
[2023-07-16 19:15] LABS: APPEARANCE,URINE CLOUDY (CLEAR); BILIRUBIN,URINE NEGATIVE (NEGATIVE); COLOR,URINE LIGHT-ORANGE (YELLOW); GLUCOSE, URINE (UA) >=1000 mg/dL (NEGATIVE); KETONES,URINE NEGATIVE (NEGATIVE); LEUKOCYTE ESTERASE ,URINE 500 Leu/uL (NEGATIVE); NITRATE,URINE NEGATIVE (NEGATIVE); OCCULT BLOOD,URINE LARGE (NEGATIVE); PROTEIN,URINE 50 mg/dL (NEGATIVE); UROBILINOGEN,URINE 0.2 mg/dL (0.2-1.0)
[2023-07-16 19:16] LABS: ADD UA MICROSCOPIC YES
[2023-07-16 19:26] LABS: BACTERIA,URINE MOD /HPF (None Seen); MUCUS,URINE RARE LPF (None Seen); RBC,URINE TNTC /HPF (0-1); SQUAMOUS EPITHELIAL CELL,UR FEW /HPF (0-2); WBC CLUMP MOD /HPF (0-1); WBC,URINE TNTC /HPF (0-1); YEAST,URINE BUDDING MANY /HPF (None Seen)
[2023-07-16] MEDS ORDERED: CEFTRIAXONE 2GM VIAL IVPB ONE (21:00)
[2023-07-16] MEDS ORDERED: INSULIN HUMULIN R 100 UNIT/ML 3ML SQ ONE (21:00)
[2023-07-16] MEDS ORDERED: ONDANSETRON 4MG INJ IVP PRN (21:30)
[2023-07-16] MEDS ORDERED: CLONIDINE HCL 0.1 MG TABLET PO PRN (21:30)
[2023-07-16] MEDS ORDERED: TEMAZEPAM 15 MG CAPSULE PO PRN (21:30)
[2023-07-16] MEDS ORDERED: HYDRALAZINE 20MG/ML VIAL IV PRN (21:30)
[2023-07-16] MEDS ORDERED: GABA-529 PO (21:32)
[2023-07-16] MEDS ORDERED: CLOP-31 PO (21:33)
[2023-07-16] MEDS: 0.9%NACL 1000ML 1,000 ML IV SCH (22:20)
[2023-07-16 22:55] VITALS: BP 144/84; PULSE 120; RESP 22
[2023-07-17] VITALS (8 sets, daily range): BP systolic 100–172; BP diastolic 66–79; PULSE 96–155; RESP 20; O2SAT 91–97
[2023-07-17] MEDS ORDERED: IBUPROFEN 600 MG TABLET PO ONE (00:30)
[2023-07-17] MEDS ORDERED: 0.9% NACL 500ML IV.SOLN 500 ML IV SCH (00:30)
[2023-07-17 05:40] LABS: HEMATOCRIT 29.6 % (42-54); MEAN CORPUSCULAR HEMOGLOBIN 27.9 pg (27.0-33.0); MEAN CORPUSCULAR HGB CONC 30.7 g/dL (32.0-36.0); MEAN CORPUSCULAR VOLUME 90.8 fL (79-99); NUCLEATED RED BLOOD CELLS 0.2 % (0.0-0.19); RED BLOOD CELL COUNT(AUTO) 3.26 MIL/uL (4.50-6.20); RED CELL DISTRIBUTION WIDTH 14.9 % (11.0-15.5); WHITE BLOOD COUNT (AUTO) 18.4 K/uL (4.8-10.8)
[2023-07-17] MEDS: 0.9%NACL 1000ML 1,000 ML IV SCH ×2 (05:56→17:30)
[2023-07-17] MEDS: INSULIN HUMULIN R 100 UNIT/ML 3ML SQ SCH ×4 (05:57→20:41)
[2023-07-17 06:16] LABS: HEMOGLOBIN A1C 9.2 % (4.0-6.0)
[2023-07-17 06:17] LABS: CREATININE 1.2 mg/dL (0.5-1.5); MAGNESIUM 1.1 mg/dL (1.80-2.40); PHOSPHORUS 2.6 mg/dL (2.5-4.9); POTASSIUM 3.5 mmol/L (3.5-5.1)
[2023-07-17] MEDS ORDERED: POTASSIUM CHLORIDE 20MEQ/100ML 100 ML IV PRN (08:30)
[2023-07-17] MEDS ORDERED: METOPROLOL TARTRATE 1 MG/ML 5ML VIAL IV ONE (09:00)
[2023-07-17] MEDS: CEFTRIAXONE 1G VIAL IVPB SCH (09:45)
[2023-07-17] MEDS: MAGNESIUM 2GM PREMIX 50ML 50 ML IV PRN (09:46)
[2023-07-17] MEDS: ENOXAPARIN SODIUM 30 MG/0.3 ML SQ SCH (09:46)
[2023-07-17] MEDS: PANTOPRAZOLE 40 MG TAB DR PO SCH (09:46)
[2023-07-17] MEDS: FLUCONAZOLE 400 MG/NS 200 ML 200 ML IV SCH (09:54)
[2023-07-17] MEDS: POTASSIUM CHLORIDE 10% ELIXIR 20 MEQ/15 ML UDCUP PO PRN ×2 (12:29→14:59)
[2023-07-17] MEDS: ACETAMINOPHEN 325 MG TAB PO PRN (17:11)
[2023-07-18] VITALS (8 sets, daily range): BP systolic 105–141; BP diastolic 61–79; PULSE 97–117; RESP 20; TEMP 99.8; O2SAT 91–97
[2023-07-18] MEDS: 0.9%NACL 1000ML 1,000 ML IV SCH ×2 (00:16→13:30)
[2023-07-18] MEDS: ACETAMINOPHEN 325 MG TAB PO PRN ×2 (00:17→20:23)
[2023-07-18] MEDS: INSULIN HUMULIN R 100 UNIT/ML 3ML SQ SCH ×4 (05:49→20:25)
[2023-07-18 06:06] LABS: HEMATOCRIT 32.8 % (42-54); MEAN CORPUSCULAR HEMOGLOBIN 28.2 pg (27.0-33.0); MEAN CORPUSCULAR HGB CONC 31.4 g/dL (32.0-36.0); MEAN CORPUSCULAR VOLUME 89.9 fL (79-99); NUCLEATED RED BLOOD CELLS 0.1 % (0.0-0.19); RED BLOOD CELL COUNT(AUTO) 3.65 MIL/uL (4.50-6.20); RED CELL DISTRIBUTION WIDTH 15.4 % (11.0-15.5); WHITE BLOOD COUNT (AUTO) 22.5 K/uL (4.8-10.8)
[2023-07-18 06:19] LABS: CREATININE 1.1 mg/dL (0.5-1.5); MAGNESIUM 1.4 mg/dL (1.80-2.40); POTASSIUM 4.1 mmol/L (3.5-5.1)
[2023-07-18] MEDS: MAGNESIUM 2GM PREMIX 50ML 50 ML IV PRN (07:19)
[2023-07-18] MEDS: FLUCONAZOLE 400 MG/NS 200 ML 200 ML IV SCH (08:25)
[2023-07-18] MEDS: ENOXAPARIN SODIUM 30 MG/0.3 ML SQ SCH (08:26)
[2023-07-18] MEDS: CEFTRIAXONE 1G VIAL IVPB SCH (08:26)
[2023-07-18] MEDS: PANTOPRAZOLE 40 MG TAB DR PO SCH (08:27)
[2023-07-18] MEDS ORDERED: COMPOUND IV MISC 1 EACH IVSOLN MISC PRN (16:30)
[2023-07-18] MEDS: MEROPENEM 1 GM in 0.9%NACL 100ML 100 ML IVPB SCH (17:34)
[2023-07-19] VITALS (9 sets, daily range): BP systolic 115–167; BP diastolic 67–98; PULSE 83–94; RESP 18–20; O2SAT 99
[2023-07-19] MEDS: MEROPENEM 1 GM in 0.9%NACL 100ML 100 ML IVPB SCH ×4 (00:01→23:31)
[2023-07-19 05:04] LABS: HEMATOCRIT 31.2 % (42-54); MEAN CORPUSCULAR HEMOGLOBIN 27.6 pg (27.0-33.0); MEAN CORPUSCULAR HGB CONC 30.1 g/dL (32.0-36.0); MEAN CORPUSCULAR VOLUME 91.5 fL (79-99); PLATELET COUNT (AUTO) 275 K/uL (130-400); RED BLOOD CELL COUNT(AUTO) 3.41 MIL/uL (4.50-6.20); WHITE BLOOD COUNT (AUTO) 13.9 K/uL (4.8-10.8)
[2023-07-19 05:07] LABS: CREATININE 1.2 mg/dL (0.5-1.5); MAGNESIUM 1.8 mg/dL (1.80-2.40); POTASSIUM 3.8 mmol/L (3.5-5.1)
[2023-07-19] MEDS: MAGNESIUM 2GM PREMIX 50ML 50 ML IV PRN (05:39)
[2023-07-19] MEDS: KCL 20 MEQ ERTAB PO PRN ×2 (05:40→09:53)
[2023-07-19] MEDS: INSULIN HUMULIN R 100 UNIT/ML 3ML SQ SCH ×4 (05:40→20:36)
[2023-07-19] MEDS: 0.9%NACL 1000ML 1,000 ML IV SCH ×4 (05:42→23:32)
[2023-07-19] MEDS: PANTOPRAZOLE 40 MG TAB DR PO SCH (09:33)
[2023-07-19] MEDS: ENOXAPARIN SODIUM 30 MG/0.3 ML SQ SCH (09:44)
[2023-07-19] MEDS: FLUCONAZOLE 400 MG/NS 200 ML 200 ML IV SCH (12:32)
[2023-07-19] MEDS: ACETAMINOPHEN 325 MG TAB PO PRN (20:37)
[2023-07-20] VITALS (7 sets, daily range): BP systolic 123–151; BP diastolic 71–79; PULSE 74–83; RESP 16–19; O2SAT 95–97
[2023-07-20 05:16] LABS: HEMATOCRIT 31.7 % (42-54); MEAN CORPUSCULAR HEMOGLOBIN 27.9 pg (27.0-33.0); MEAN CORPUSCULAR HGB CONC 30.9 g/dL (32.0-36.0); MEAN CORPUSCULAR VOLUME 90.3 fL (79-99); NUCLEATED RED BLOOD CELLS 0.2 % (0.0-0.19); RED BLOOD CELL COUNT(AUTO) 3.51 MIL/uL (4.50-6.20)
[2023-07-20 05:19] LABS: CREATININE 1.1 mg/dL (0.5-1.5); MAGNESIUM 1.9 mg/dL (1.80-2.40); POTASSIUM 4.3 mmol/L (3.5-5.1)
[2023-07-20] MEDS: MAGNESIUM 2GM PREMIX 50ML 50 ML IV PRN (05:24)
[2023-07-20] MEDS: INSULIN HUMULIN R 100 UNIT/ML 3ML SQ SCH ×4 (06:06→20:34)
[2023-07-20] MEDS: FLUCONAZOLE 400 MG/NS 200 ML 200 ML IV SCH (08:22)
[2023-07-20] MEDS: ENOXAPARIN SODIUM 30 MG/0.3 ML SQ SCH (08:23)
[2023-07-20] MEDS: PANTOPRAZOLE 40 MG TAB DR PO SCH (08:23)
[2023-07-20] MEDS: MEROPENEM 1 GM in 0.9%NACL 100ML 100 ML IVPB SCH ×2 (11:49→16:38)
[2023-07-20] MEDS: 0.9%NACL 1000ML 1,000 ML IV SCH ×2 (15:30→23:37)
[2023-07-21] VITALS: BP 143/74; PULSE 97; RESP 15
[2023-07-21 04:00] VITALS: BP 139/64; PULSE 79; RESP 15
[2023-07-21] MEDS: INSULIN HUMULIN R 100 UNIT/ML 3ML SQ SCH ×2 (06:13→11:58)
[2023-07-21 06:16] LABS: HEMATOCRIT 31.8 % (42-54); MEAN CORPUSCULAR HEMOGLOBIN 27.5 pg (27.0-33.0); MEAN CORPUSCULAR HGB CONC 30.2 g/dL (32.0-36.0); MEAN CORPUSCULAR VOLUME 91.1 fL (79-99); NUCLEATED RED BLOOD CELLS 0.4 % (0.0-0.19); RED BLOOD CELL COUNT(AUTO) 3.49 MIL/uL (4.50-6.20); RED CELL DISTRIBUTION WIDTH 14.7 % (11.0-15.5); WHITE BLOOD COUNT (AUTO) 11.3 K/uL (4.8-10.8)
[2023-07-21 06:29] LABS: CREATININE 1.1 mg/dL (0.5-1.5); MAGNESIUM 1.7 mg/dL (1.80-2.40)
[2023-07-21] MEDS: MAGNESIUM 2GM PREMIX 50ML 50 ML IV PRN (06:33)
[2023-07-21 08:00] VITALS: BP 166/77; PULSE 85; RESP 18
[2023-07-21] MEDS: FLUCONAZOLE 400 MG/NS 200 ML 200 ML IV SCH (09:58)
[2023-07-21] MEDS: PANTOPRAZOLE 40 MG TAB DR PO SCH (09:59)
[2023-07-21] MEDS: ENOXAPARIN SODIUM 30 MG/0.3 ML SQ SCH (09:59)
[2023-07-21] MEDS: 0.9%NACL 1000ML 1,000 ML IV SCH (11:30)
[2023-07-21 12:00] VITALS: BP 130/72; PULSE 80; RESP 18
[2023-07-21] MEDS ORDERED: FLUC200T12 PO (14:26)
== END 2023-07-21 16:30 | disposition home or self-care (01) | DRG 872 ==
LOC: EDH 16:29 → OBSVTOIN 21:21 → EDHIP 21:21 → 3CH 22:16
PROVIDERS: ADMIT Internal Medicine Critical Care Medicine; ATTEND Internal Medicine Critical Care Medicine
DX: A41.9 Sepsis, unspecified organism (principal); N30.00 Acute cystitis without hematuria; N17.9 Acute kidney failure, unspecified; E11.65 Type 2 diabetes mellitus with hyperglycemia; D50.9 Iron deficiency anemia, unspecified; I11.9 Hypertensive heart disease without heart failure; I25.10 Atherosclerotic heart disease of native coronary artery without angina pectoris; N40.0 Benign prostatic hyperplasia without lower urinary tract symptoms; Z82.49 Family history of ischemic heart disease and other diseases of the circulatory system; Z83.3 Family history of diabetes mellitus
CPT/HCPCS: 36415; 71045; 76700; 76856; 80048; 80053; 81001; 82948; 83036; 83605; 83735; 84100; 85025; 85027; 87040; 87088; 93005; G0378; J0696; J1450; J1650; J1815; J2185; J3475; J3490; J7030

== ENCOUNTER 2023-11-24 18:47 | Emergency (ER) | payer OTHER ==
[~2023-11-24] VITALS: Ht 167.6 cm; Wt 72.6 kg
[~2023-11-24 18:47] MED LIST changes: +AEC81 PO; +AMOX-426 PO; -ASPI-1197 PO; -CEPH500B PO; -CYAN250014 PO; -DULO30CA52 PO; +DULO60CA64 PO; -FERR-82 PO; +FERS325 PO; -FLUC150T48 PO; -GLIP5TAB11 PO; +GLIP5TAB15 PO; +INSLAN SQ; +LACT10SO85 PO; -LEVO-70 PO; +MULT9LIQ9 PO; +ROSU5TAB PO; -ROSU5TAB12 PO; -TAMS-1 PO
[2023-11-24] MEDS ORDERED: ACETAMINOPHEN 500 MG TABLET PO ONE (19:00)
[2023-11-24 19:51] LABS: RAPID GROUP A STREP negative (NEGATIVE)
[2023-11-24 19:59] LABS: INFLUENZA TYPE A Negative For Type A (NEGATIVE); INFLUENZA TYPE B Negative For Type B (NEGATIVE)
[2023-11-24 20:44] LABS: COVID19 (SARS ANTIGEN RAPID) POSITIVE FOR SARS AG (NEGATIVE)
[2023-11-24] MEDS ORDERED: ALBUHFA IH (21:05)
[2023-11-24] MEDS ORDERED: BENZ-39 PO (21:05)
[2023-11-24 21:16] VITALS: TEMP 101.6
[2023-11-24] MEDS ORDERED: IBUPROFEN 600 MG TABLET PO ONE (21:30)
[2023-11-24 21:52] VITALS: BP 114/68; PULSE 98; RESP 18; O2SAT 97
== END 2023-11-24 21:54 | disposition home or self-care (01) ==
LOC: EDH 18:47
DX: U07.1 COVID-19 (principal); R05.9 Cough, unspecified; R50.9 Fever, unspecified; Z79.02 Long term (current) use of antithrombotics/antiplatelets; Z79.82 Long term (current) use of aspirin; Z79.84 Long term (current) use of oral hypoglycemic drugs; Z79.899 Other long term (current) drug therapy
CPT/HCPCS: 87426; 87804; 87880

== ENCOUNTER 2024-07-04 15:42 | Inpatient (IN) | payer OTHER ==
[~2024-07-04] VITALS: Ht 152.4 cm; Wt 68.9 kg
[~2024-07-04 15:42] MED LIST changes: +ALBUHFA IH; +BENZ-39 PO
[2024-07-04] MEDS: [UNRECOGNIZED DRUG - OTHER] IV ONE (16:28)
[2024-07-04] MEDS: ZOSYN 3.375GM +NS 50ML IV ONE (16:28)
[2024-07-04 16:34] LABS: BASOPHILS # (AUTO) 0.06 K/uL (0.00-0.20); BASOPHILS % (AUTO) 0.3 % (0.0-5.0); EOSINOPHILS # (AUTO) 0.03 K/uL (0.00-0.70); EOSINOPHILS % (AUTO) 0.1 % (0.0-8.0); IMMATURE GRANULOCYTE ABSOLUTE 0.45 K/uL (0-1); LYMPHOCYTES # (AUTO) 1.3 K/uL (1.0-4.8); LYMPHOCYTES % (AUTO) 6.1 % (21.0-51.0); MEAN CORPUSCULAR HGB CONC 32.3 g/dL (32.0-36.0); MEAN CORPUSCULAR VOLUME 86.8 fL (79-99); MONOCYTES # (AUTO) 1.9 K/uL (0.1-1.0); MONOCYTES % (AUTO) 8.9 % (3.0-13.0); NEUTROPHILS # (AUTO) 17.4 K/uL (1.8-7.7); NEUTROPHILS % (AUTO) 82.5 % (40.0-77.0); NUCLEATED RED BLOOD CELLS 0.1 % (0.0-0.19); PLATELET COUNT (AUTO) 155 K/uL (130-400); RED BLOOD CELL COUNT(AUTO) 4.03 MIL/uL (4.50-6.20); RED CELL DISTRIBUTION WIDTH 15.3 % (11.0-15.5); WHITE BLOOD COUNT (AUTO) 21.1 K/uL (4.8-10.8)
[2024-07-04 16:47] LABS: ALBUMIN 2.8 g/dL (3.5-5.0); BILIRUBIN,TOTAL 0.6 mg/dL (0.2-1.0); CREATININE 1.7 mg/dL (0.5-1.3); TOTAL PROTEIN, SERUM 7.6 g/dL (6.0-8.3)
[2024-07-04 16:56] LABS: RAPID GROUP A STREP negative (NEGATIVE)
[2024-07-04 17:06] LABS: COVID19 (SARS ANTIGEN RAPID) PRESUMPTIVE NEGATIVE (NEGATIVE); INFLUENZA TYPE A Negative For Type A (NEGATIVE); INFLUENZA TYPE B Negative For Type B (NEGATIVE)
[2024-07-04] MEDS ORDERED: hydrALAZine 20MG/ML VIAL IV PRN (17:30)
[2024-07-04] MEDS ORDERED: doCUSate SODIUM 100 MG CAP PO PRN (17:30)
[2024-07-04] MEDS ORDERED: TEMAZEPAM 15 MG CAPSULE PO PRN (17:30)
[2024-07-04] MEDS ORDERED: ONDANSETRON 4MG INJ IVP PRN (17:30)
[2024-07-04] MEDS ORDERED: acetaMINOPHEN 650 MG SUPPOSITORY RC PRN (17:30)
[2024-07-04] MEDS ORDERED: VANCOMYCIN PROTOCOL PER PHARMACY IV SCH (17:30)
[2024-07-04] MEDS: acetaMINOPHEN 500 MG TABLET ONE (17:52)
[2024-07-04] MEDS: acetaMINOPHEN 500 MG TABLET PO ONE (17:52)
[2024-07-04] MEDS ORDERED: POTASSIUM CHLORIDE 20MEQ/100ML 100 ML IV PRN (18:00)
[2024-07-04] MEDS ORDERED: DEXTROSE 50%-WATER 50 ML DISP.SYRIN IV PRN (18:00)
[2024-07-04] MEDS ORDERED: GLUCAGON 1MG KIT 1 MG ML IM PRN (18:00)
[2024-07-04 18:35] VITALS: BP 147/102; PULSE 70; RESP 18; TEMP 103.1
[2024-07-04 18:55] VITALS: BP 142/102; PULSE 70; RESP 20; TEMP 102
[2024-07-04 19:15] VITALS: BP 104/59; PULSE 126; RESP 20; TEMP 101.1
[2024-07-04 19:59] VITALS: PULSE 121; RESP 18; O2SAT 95
[2024-07-04 20:00] VITALS: PULSE 130; O2SAT 99
[2024-07-04] MEDS: VANCOMYCIN 1G/250ML KIT 250 ML IV SCH (20:20)
[2024-07-04] MEDS: KCL 20 MEQ ERTAB PO ONE (20:21)
[2024-07-04] MEDS: LACTATED RINGERS 1000ML 1,000 ML IV SCH (20:21)
[2024-07-04] MEDS: IBUPROFEN 600 MG TABLET PO ONE (20:57)
[2024-07-04] MEDS: 0.9% NACL 500ML IV.SOLN 500 ML IV ONE (20:58)
[2024-07-04] MEDS: INSULIN humuLIN R 100 UNIT/ML 3ML SQ SCH (21:21)
[2024-07-04 22:56] VITALS: BP 113/69; PULSE 97; RESP 18; TEMP 98.3
[2024-07-04 23:03] LABS: APPEARANCE,URINE CLEAR (CLEAR); BILIRUBIN,URINE NEGATIVE (NEGATIVE); COLOR,URINE YELLOW (YELLOW); GLUCOSE, URINE (UA) 200 mg/dL (NEGATIVE); KETONES,URINE NEGATIVE (NEGATIVE); LEUKOCYTE ESTERASE ,URINE 25 Leu/uL (NEGATIVE); NITRATE,URINE NEGATIVE (NEGATIVE); OCCULT BLOOD,URINE SMALL (NEGATIVE); PROTEIN,URINE 100 mg/dL (NEGATIVE); UROBILINOGEN,URINE 0.2 mg/dL (0.2-1.0)
[2024-07-04 23:18] LABS: ADD UA MICROSCOPIC YES
[2024-07-04 23:20] LABS: BACTERIA,URINE None Seen /HPF (None Seen); SQUAMOUS EPITHELIAL CELL,UR Rare /HPF (0-2)
[2024-07-05] VITALS (10 sets, daily range): BP systolic 108–135; BP diastolic 56–81; PULSE 89–110; RESP 16–21; TEMP 98–99.6; O2SAT 88–99
[2024-07-05] MEDS: ceFEPime HCL 1 GM VIAL IVPB SCH ×2 (00:36→12:28)
[2024-07-05 02:18] LABS: ABG BASE EXCESS 1.1 mmol/L (-2.0-3.0); ABG OXYGEN SATURATION 92.9 % (94.0-98.0); ABG PCO2 43 mmHg (35-48); ABG PH 7.405 (7.350-7.450); CARBON MONOXIDE 0.3 % (0.5-1.5); DEVICE COMMENT RB RN MARIA; HHb 7.1; PO2, ARTERIAL BG 64.7 mmHg (83.0-108.0); VENT MODE, BG ROOMAIR (ROOM AIR)
[2024-07-05] MEDS: acetaMINOPHEN 325 MG TAB PO PRN (02:20)
[2024-07-05 04:36] LABS: BASOPHILS # (AUTO) 0.06 K/uL (0.00-0.20); BASOPHILS % (AUTO) 0.3 % (0.0-5.0); EOSINOPHILS # (AUTO) 0.07 K/uL (0.00-0.70); EOSINOPHILS % (AUTO) 0.3 % (0.0-8.0); HEMATOCRIT 32.2 % (42-54); LYMPHOCYTES # (AUTO) 1.3 K/uL (1.0-4.8); LYMPHOCYTES % (AUTO) 6.2 % (21.0-51.0); MEAN CORPUSCULAR HEMOGLOBIN 28.3 pg (27.0-33.0); MEAN CORPUSCULAR HGB CONC 32.3 g/dL (32.0-36.0); MEAN CORPUSCULAR VOLUME 87.7 fL (79-99); MONOCYTES # (AUTO) 1.9 K/uL (0.1-1.0); MONOCYTES % (AUTO) 9.2 % (3.0-13.0); NEUTROPHILS # (AUTO) 16.2 K/uL (1.8-7.7); PLATELET COUNT (AUTO) 139 K/uL (130-400); RED BLOOD CELL COUNT(AUTO) 3.67 MIL/uL (4.50-6.20); RED CELL DISTRIBUTION WIDTH 15.4 % (11.0-15.5); WHITE BLOOD COUNT (AUTO) 20.2 K/uL (4.8-10.8)
[2024-07-05 05:09] LABS: CREATININE 1.4 mg/dL (0.5-1.3); MAGNESIUM 1.1 mg/dL (1.80-2.40); PHOSPHORUS 2.4 mg/dL (2.5-4.9); POTASSIUM 3.2 mmol/L (3.5-5.1); THYROID STIMULATING HORMONE 1.05 uIU/mL (0.36-3.74)
[2024-07-05] MEDS: KCL 20 MEQ ERTAB PO PRN (05:50)
[2024-07-05] MEDS: MAGNESIUM 2GM PREMIX 50ML 50 ML IV PRN (05:50)
[2024-07-05] MEDS ORDERED: POTASSIUM CHLORIDE 10MEQ/100ML 100 ML IV PRN (06:00)
[2024-07-05] MEDS: ENOXAPARIN SODIUM 30 MG/0.3 ML SQ SCH (07:59)
[2024-07-05] MEDS ORDERED: TAMS-1 PO (13:28)
[2024-07-05] MEDS: POTASSIUM CHLORIDE 10MEQ SR TAB PO PRN (19:46)
[2024-07-05] MEDS: FAMOTIDINE 20MG TAB PO SCH (19:46)
[2024-07-06] VITALS (12 sets, daily range): BP systolic 119–163; BP diastolic 57–83; PULSE 93–131; RESP 16–22; TEMP 99.5–103; O2SAT 94–98
[2024-07-06 05:14] LABS: BASOPHILS # (AUTO) 0.08 K/uL (0.00-0.20); BASOPHILS % (AUTO) 0.4 % (0.0-5.0); EOSINOPHILS # (AUTO) 0.07 K/uL (0.00-0.70); EOSINOPHILS % (AUTO) 0.4 % (0.0-8.0); HEMATOCRIT 30.9 % (42-54); IMMATURE GRANULOCYTE ABSOLUTE 0.78 K/uL (0-1); LYMPHOCYTES % (AUTO) 10.2 % (21.0-51.0); MEAN CORPUSCULAR HEMOGLOBIN 27.3 pg (27.0-33.0); MEAN CORPUSCULAR VOLUME 85.4 fL (79-99); MONOCYTES # (AUTO) 1.4 K/uL (0.1-1.0); MONOCYTES % (AUTO) 7.3 % (3.0-13.0); NEUTROPHILS # (AUTO) 15.1 K/uL (1.8-7.7); NEUTROPHILS % (AUTO) 77.7 % (40.0-77.0); NUCLEATED RED BLOOD CELLS 0.2 % (0.0-0.19); PLATELET COUNT (AUTO) 151 K/uL (130-400); RED BLOOD CELL COUNT(AUTO) 3.62 MIL/uL (4.50-6.20); RED CELL DISTRIBUTION WIDTH 14.9 % (11.0-15.5); WHITE BLOOD COUNT (AUTO) 19.4 K/uL (4.8-10.8)
[2024-07-06 05:57] LABS: CREATININE 1.2 mg/dL (0.5-1.3); MAGNESIUM 1.8 mg/dL (1.80-2.40); POTASSIUM 3.2 mmol/L (3.5-5.1)
[2024-07-06] MEDS: SODIUM CHLORIDE 7% INHALATION 4 ML VIAL.NEB IH ONE (07:00)
[2024-07-06 14:08] LABS: MAGNESIUM 2.1 mg/dL (1.80-2.40); PHOSPHORUS 1.6 mg/dL (2.5-4.9)
[2024-07-06 15:57] LABS: INR 1.06 (0.85-1.15); PROTHROMBIN TIME 11.4 SEC (9.6-11.6)
[2024-07-06] MEDS: SODIUM CHLORIDE 3% FOR INHALATION 4 ML/AMP VIAL.NEB IH ONE (19:00)
[2024-07-06] MEDS: DOXYCYCLINE 100MG+NS 250ML 250 ML IV SCH (23:54)
[2024-07-07] VITALS (10 sets, daily range): BP systolic 123–141; BP diastolic 61–78; PULSE 78–108; RESP 16–20; TEMP 98.7–102.1; O2SAT 92–95
[2024-07-07 03:53] LABS: BASOPHILS # (AUTO) 0.13 K/uL (0.00-0.20); BASOPHILS % (AUTO) 0.7 % (0.0-5.0); EOSINOPHILS # (AUTO) 0.06 K/uL (0.00-0.70); EOSINOPHILS % (AUTO) 0.3 % (0.0-8.0); HEMATOCRIT 31.2 % (42-54); IMMATURE GRANULOCYTE ABSOLUTE 0.91 K/uL (0-1); LYMPHOCYTES # (AUTO) 1.9 K/uL (1.0-4.8); LYMPHOCYTES % (AUTO) 10.5 % (21.0-51.0); MEAN CORPUSCULAR HEMOGLOBIN 27.9 pg (27.0-33.0); MEAN CORPUSCULAR HGB CONC 32.4 g/dL (32.0-36.0); MEAN CORPUSCULAR VOLUME 86.2 fL (79-99); MONOCYTES # (AUTO) 1.5 K/uL (0.1-1.0); MONOCYTES % (AUTO) 8.4 % (3.0-13.0); NEUTROPHILS # (AUTO) 13.6 K/uL (1.8-7.7); NEUTROPHILS % (AUTO) 75.1 % (40.0-77.0); NUCLEATED RED BLOOD CELLS 0.2 % (0.0-0.19); PLATELET COUNT (AUTO) 161 K/uL (130-400); RED BLOOD CELL COUNT(AUTO) 3.62 MIL/uL (4.50-6.20); RED CELL DISTRIBUTION WIDTH 15.1 % (11.0-15.5); WHITE BLOOD COUNT (AUTO) 18.1 K/uL (4.8-10.8)
[2024-07-07 04:13] LABS: BILIRUBIN,TOTAL 0.7 mg/dL (0.2-1.0); CREATININE 1.2 mg/dL (0.5-1.3); TOTAL PROTEIN, SERUM 6.9 g/dL (6.0-8.3)
[2024-07-07 04:37] LABS: B-TYPE NATRIURETIC PEPTIDE 342 pg/mL (0-100)
[2024-07-07] MEDS: SODIUM CHLORIDE 3% FOR INHALATION 4 ML/AMP VIAL.NEB IH ONE ×2 (06:23→18:40)
[2024-07-07] MEDS: duloXETine HCL 30 MG CAP PO SCH (07:26)
[2024-07-07] MEDS: FOLic ACID 1 MG TABLET PO SCH (09:21)
[2024-07-07] MEDS: ASPIRIN 81 MG EC TAB PO SCH (09:21)
[2024-07-07] MEDS: atorVAStatin 10 MG TABLET PO SCH (09:21)
[2024-07-07] MEDS: VANCOMYCIN 1.25 GM/250 ML BAG 250 ML IV SCH (09:21)
[2024-07-07] MEDS: CILOstazol 100 MG TAB PO SCH (09:21)
[2024-07-07 12:59] LABS: MAGNESIUM 1.7 mg/dL (1.80-2.40)
[2024-07-07] MEDS: LACTULOSE 20 GM/30 ML UDCUP PO PRN (17:09)
[2024-07-07] MEDS: POTASSIUM CHLORIDE 10% ELIXIR 20 MEQ/15 ML UDCUP PO PRN (17:54)
[2024-07-07] MEDS: tamSULOsin HCL 0.4 MG CAP.ER.24H PO SCH (22:35)
[2024-07-08] VITALS (11 sets, daily range): BP systolic 114–136; BP diastolic 58–74; PULSE 95–107; RESP 16–18; TEMP 98.1–100.1; O2SAT 86–96
[2024-07-08 03:46] LABS: BASOPHILS % (AUTO) 0.6 % (0.0-5.0); EOSINOPHILS # (AUTO) 0.15 K/uL (0.00-0.70); EOSINOPHILS % (AUTO) 0.8 % (0.0-8.0); HEMATOCRIT 30.5 % (42-54); IMMATURE GRANULOCYTE ABSOLUTE 1.09 K/uL (0-1); LYMPHOCYTES # (AUTO) 1.9 K/uL (1.0-4.8); LYMPHOCYTES % (AUTO) 10.4 % (21.0-51.0); MEAN CORPUSCULAR HEMOGLOBIN 27.9 pg (27.0-33.0); MEAN CORPUSCULAR HGB CONC 31.8 g/dL (32.0-36.0); MEAN CORPUSCULAR VOLUME 87.6 fL (79-99); MONOCYTES # (AUTO) 1.4 K/uL (0.1-1.0); MONOCYTES % (AUTO) 7.6 % (3.0-13.0); NEUTROPHILS # (AUTO) 13.3 K/uL (1.8-7.7); NEUTROPHILS % (AUTO) 74.5 % (40.0-77.0); NUCLEATED RED BLOOD CELLS 0.2 % (0.0-0.19); PLATELET COUNT (AUTO) 171 K/uL (130-400); RED BLOOD CELL COUNT(AUTO) 3.48 MIL/uL (4.50-6.20); RED CELL DISTRIBUTION WIDTH 14.8 % (11.0-15.5); WHITE BLOOD COUNT (AUTO) 17.9 K/uL (4.8-10.8)
[2024-07-08 04:01] LABS: ALBUMIN 1.9 g/dL (3.5-5.0); BILIRUBIN,TOTAL 0.6 mg/dL (0.2-1.0); CREATININE 1.1 mg/dL (0.5-1.3); MAGNESIUM 1.5 mg/dL (1.80-2.40); PHOSPHORUS 1.5 mg/dL (2.5-4.9); POTASSIUM 3.4 mmol/L (3.5-5.1); TOTAL PROTEIN, SERUM 6.8 g/dL (6.0-8.3)
[2024-07-08] MEDS ORDERED: IpraTROPium/alBUTERol SULFATE 3 ML SOLUTION IH PRN (07:30)
[2024-07-08] MEDS ORDERED: POTASSIUM PHOS 15 mMOL+NS250ML 250 ML IV PRN (07:30)
[2024-07-08] MEDS: VANCOMYCIN 500MG+NS 100ML 100 ML IV ONE (10:02)
[2024-07-09] VITALS (10 sets, daily range): BP systolic 99–149; BP diastolic 55–86; PULSE 81–112; RESP 18–22; TEMP 98.6–100.4; O2SAT 94–97
[2024-07-09 04:11] LABS: BASOPHILS # (AUTO) 0.14 K/uL (0.00-0.20); BASOPHILS % (AUTO) 0.7 % (0.0-5.0); EOSINOPHILS # (AUTO) 0.24 K/uL (0.00-0.70); EOSINOPHILS % (AUTO) 1.3 % (0.0-8.0); HEMATOCRIT 32.2 % (42-54); IMMATURE GRANULOCYTE ABSOLUTE 2.11 K/uL (0-1); LYMPHOCYTES % (AUTO) 10.9 % (21.0-51.0); MEAN CORPUSCULAR HEMOGLOBIN 27.8 pg (27.0-33.0); MONOCYTES # (AUTO) 1.3 K/uL (0.1-1.0); MONOCYTES % (AUTO) 6.9 % (3.0-13.0); NUCLEATED RED BLOOD CELLS 0.4 % (0.0-0.19); PLATELET COUNT (AUTO) 232 K/uL (130-400); RED CELL DISTRIBUTION WIDTH 14.5 % (11.0-15.5); WHITE BLOOD COUNT (AUTO) 18.8 K/uL (4.8-10.8)
[2024-07-09 04:36] LABS: BILIRUBIN,TOTAL 0.7 mg/dL (0.2-1.0); CREATININE 1.1 mg/dL (0.5-1.3); POTASSIUM 3.3 mmol/L (3.5-5.1); TOTAL PROTEIN, SERUM 7.3 g/dL (6.0-8.3)
[2024-07-09] MEDS: KCL 20 MEQ ERTAB PO SCH (08:26)
[2024-07-09] MEDS: VANCOMYCIN 1.75 GM/250 ML IV SCH (08:27)
[2024-07-09] MEDS ORDERED: COMPOUND IV MISC 1 EACH IVSOLN MISC PRN (12:30)
[2024-07-09] MEDS: MEROPENEM 1 GM in 0.9%NACL 100ML IV SCH (13:03)
[2024-07-09] MEDS: fluCONazole 200 MG/NS 100 ML IV SCH (13:08)
[2024-07-10] VITALS (9 sets, daily range): BP systolic 105–137; BP diastolic 52–71; PULSE 80–109; RESP 16–20; TEMP 98.2–99.4; O2SAT 94–95
[2024-07-10 04:14] LABS: BASOPHILS # (AUTO) 0.04 K/uL (0.00-0.20); BASOPHILS % (AUTO) 0.2 % (0.0-5.0); EOSINOPHILS % (AUTO) 1.2 % (0.0-8.0); HEMATOCRIT 32.9 % (42-54); IMMATURE GRANULOCYTE ABSOLUTE 2.51 K/uL (0-1); LYMPHOCYTES % (AUTO) 7.8 % (21.0-51.0); MEAN CORPUSCULAR HEMOGLOBIN 28.3 pg (27.0-33.0); MEAN CORPUSCULAR HGB CONC 32.8 g/dL (32.0-36.0); MEAN CORPUSCULAR VOLUME 86.1 fL (79-99); MONOCYTES # (AUTO) 1.4 K/uL (0.1-1.0); MONOCYTES % (AUTO) 5.3 % (3.0-13.0); NEUTROPHILS # (AUTO) 19.8 K/uL (1.8-7.7); NEUTROPHILS % (AUTO) 75.9 % (40.0-77.0); NUCLEATED RED BLOOD CELLS 0.5 % (0.0-0.19); PLATELET COUNT (AUTO) 307 K/uL (130-400); RED BLOOD CELL COUNT(AUTO) 3.82 MIL/uL (4.50-6.20); RED CELL DISTRIBUTION WIDTH 14.6 % (11.0-15.5)
[2024-07-10 04:34] LABS: CREATININE 1.2 mg/dL (0.5-1.3); MAGNESIUM 1.3 mg/dL (1.80-2.40); PHOSPHORUS 2.3 mg/dL (2.5-4.9)
[2024-07-10] MEDS ORDERED: IOHEXOL 350 MG/ML 100ML INFUS..BTL IV ONE (12:10)
[2024-07-11] VITALS (7 sets, daily range): BP systolic 114–131; BP diastolic 56–69; PULSE 90–96; RESP 16–18; TEMP 98.1–98.9; O2SAT 92–95
[2024-07-11 03:38] LABS: BASOPHILS # (AUTO) 0.05 K/uL (0.00-0.20); BASOPHILS % (AUTO) 0.2 % (0.0-5.0); EOSINOPHILS # (AUTO) 0.24 K/uL (0.00-0.70); EOSINOPHILS % (AUTO) 1.1 % (0.0-8.0); HEMATOCRIT 32.1 % (42-54); IMMATURE GRANULOCYTE ABSOLUTE 2.19 K/uL (0-1); LYMPHOCYTES # (AUTO) 2.6 K/uL (1.0-4.8); LYMPHOCYTES % (AUTO) 11.7 % (21.0-51.0); MEAN CORPUSCULAR HEMOGLOBIN 27.7 pg (27.0-33.0); MEAN CORPUSCULAR HGB CONC 31.5 g/dL (32.0-36.0); MEAN CORPUSCULAR VOLUME 87.9 fL (79-99); MONOCYTES # (AUTO) 1.2 K/uL (0.1-1.0); MONOCYTES % (AUTO) 5.6 % (3.0-13.0); NEUTROPHILS % (AUTO) 71.6 % (40.0-77.0); NUCLEATED RED BLOOD CELLS 0.4 % (0.0-0.19); PLATELET COUNT (AUTO) 309 K/uL (130-400); RED BLOOD CELL COUNT(AUTO) 3.65 MIL/uL (4.50-6.20); RED CELL DISTRIBUTION WIDTH 14.6 % (11.0-15.5); WHITE BLOOD COUNT (AUTO) 22.3 K/uL (4.8-10.8)
[2024-07-11 03:52] LABS: CREATININE 1.2 mg/dL (0.5-1.3); MAGNESIUM 2.1 mg/dL (1.80-2.40); PHOSPHORUS 2.5 mg/dL (2.5-4.9); POTASSIUM 3.7 mmol/L (3.5-5.1)
[2024-07-11] MEDS: atorVAStatin 10 MG TABLET PO SCH (22:04)
[2024-07-11] MEDS: INSULIN humuLIN R 100 UNIT/ML 3ML SQ SCH (22:26)
[2024-07-12 00:16] VITALS: BP 154/77; PULSE 86; RESP 18; TEMP 98.8
[2024-07-12 03:56] VITALS: BP 98/57; PULSE 94; RESP 18; TEMP 98.5
[2024-07-12 04:19] LABS: BASOPHILS # (AUTO) 0.04 K/uL (0.00-0.20); BASOPHILS % (AUTO) 0.2 % (0.0-5.0); EOSINOPHILS # (AUTO) 0.21 K/uL (0.00-0.70); EOSINOPHILS % (AUTO) 1.3 % (0.0-8.0); HEMATOCRIT 34.1 % (42-54); IMMATURE GRANULOCYTE ABSOLUTE 1.86 K/uL (0-1); LYMPHOCYTES # (AUTO) 2.8 K/uL (1.0-4.8); LYMPHOCYTES % (AUTO) 16.8 % (21.0-51.0); MEAN CORPUSCULAR HEMOGLOBIN 28.1 pg (27.0-33.0); MEAN CORPUSCULAR HGB CONC 32.3 g/dL (32.0-36.0); MEAN CORPUSCULAR VOLUME 87.2 fL (79-99); MONOCYTES # (AUTO) 1.1 K/uL (0.1-1.0); MONOCYTES % (AUTO) 6.5 % (3.0-13.0); NEUTROPHILS # (AUTO) 10.6 K/uL (1.8-7.7); NUCLEATED RED BLOOD CELLS 0.7 % (0.0-0.19); PLATELET COUNT (AUTO) 380 K/uL (130-400); RED BLOOD CELL COUNT(AUTO) 3.91 MIL/uL (4.50-6.20); RED CELL DISTRIBUTION WIDTH 14.7 % (11.0-15.5); WHITE BLOOD COUNT (AUTO) 16.6 K/uL (4.8-10.8)
[2024-07-12 04:22] LABS: CREATININE 1.3 mg/dL (0.5-1.3); PHOSPHORUS 3.2 mg/dL (2.5-4.9)
[2024-07-12 07:00] VITALS: BP 116/61; PULSE 91; RESP 16; TEMP 97.5
[2024-07-12 08:00] VITALS: O2SAT 92
[2024-07-12] MEDS: INSULIN GLARgine 100 UNITS/ML 10 ML VIAL SQ SCH (10:24)
[2024-07-12 11:00] VITALS: BP 132/77; PULSE 102; TEMP 96.6
[2024-07-12] MEDS: INSULIN GLARgine 100 UNITS/ML 10 ML VIAL SQ ONE (13:15)
[2024-07-12] MEDS ORDERED: INSLAN SQ (14:34)
[2024-07-12] MEDS ORDERED: DOXY100V2 IV (14:34)
[2024-07-12] MEDS ORDERED: MERO1VIA23 IV (14:34)
[2024-07-12] MEDS ORDERED: [UNRECOGNIZED DRUG - CODE] IV (14:46)
[2024-07-13] MEDS ORDERED: INSULIN GLARgine 100 UNITS/ML 10 ML VIAL SQ SCH (09:00)
== END 2024-07-12 17:30 | DRG 871 ==
LOC: EDH 15:42 → OBSVTOIN 17:24 → EDHIP 17:24 → 2AH 18:28
PROVIDERS: ADMIT Internal Medicine Critical Care Medicine; ATTEND Internal Medicine Critical Care Medicine
PROC: 05HB33Z Insertion of Infusion Device into Right Basilic Vein, Percutaneous Approach (ICD-10-PCS; principal; 2024-07-07)
PROC: B54MZZA Ultrasonography of Right Upper Extremity Veins, Guidance (ICD-10-PCS; 2024-07-07)
DX: A41.9 Sepsis, unspecified organism (principal); J15.69 Pneumonia due to other Gram-negative bacteria; N17.0 Acute kidney failure with tubular necrosis; J15.9 Unspecified bacterial pneumonia; D47.1 Chronic myeloproliferative disease; J98.11 Atelectasis; J90 Pleural effusion, not elsewhere classified; N18.9 Chronic kidney disease, unspecified; E11.22 Type 2 diabetes mellitus with diabetic chronic kidney disease; I12.9 Hypertensive chronic kidney disease with stage 1 through stage 4 chronic kidney disease, or unspecified chronic kidney disease; E88.09 Other disorders of plasma-protein metabolism, not elsewhere classified; E11.65 Type 2 diabetes mellitus with hyperglycemia; E78.00 Pure hypercholesterolemia, unspecified; F02.80 Dementia in other diseases classified elsewhere, unspecified severity, without behavioral disturbance, psychotic disturbance, mood disturbance, and anxiety; G30.9 Alzheimer's disease, unspecified; H40.9 Unspecified glaucoma; S09.8XXA Other specified injuries of head, initial encounter; D63.1 Anemia in chronic kidney disease; E11.51 Type 2 diabetes mellitus with diabetic peripheral angiopathy without gangrene; E87.6 Hypokalemia; E87.8 Other disorders of electrolyte and fluid balance, not elsewhere classified; H54.3 Unqualified visual loss, both eyes; Z20.822 Contact with and (suspected) exposure to COVID-19; N40.0 Benign prostatic hyperplasia without lower urinary tract symptoms; Z82.49 Family history of ischemic heart disease and other diseases of the circulatory system; Z83.3 Family history of diabetes mellitus; Z90.49 Acquired absence of other specified parts of digestive tract; Z79.899 Other long term (current) drug therapy; W01.0XXA Fall on same level from slipping, tripping and stumbling without subsequent striking against object, initial encounter; Y93.89 Activity, other specified; Y92.89 Other specified places as the place of occurrence of the external cause; Y99.8 Other external cause status
CPT/HCPCS: 36415; 36556; 36600; 71045; 71250; 71270; 74176; 74178; 80048; 80053; 80202; 81001; 82435; 82803; 82947; 82948; 83605; 83735; 83880; 84100; 84132; 84145; 84295; 84443; 84484; 85018; 85025; 85610; 87040; 87086; 87426; 87804; 87880; 92610; 93005; 93306; 93970; 94640; 94667; 94668; A4357; A6250; C1894; G0378; J0692; J1450; J1650; J1815; J2185; J2543; J3370; J3475; J3490; J7030; Q9967; 3370; C1750